=== PATIENT | male | born 1980 | race American Indian/Alaskan Native ===

== ENCOUNTER → 2017-10-30 09:35 | Emergency (ER) | payer MEDICARE | END | disposition left against medical advice (07) | LOC: ED 09:35 | DX: Z13.0 Encounter for screening for diseases of the blood and blood-forming organs and certain disorders involving the immune mechanism (principal); Z53.21 Procedure and treatment not carried out due to patient leaving prior to being seen by health care provider ==

== ENCOUNTER 2017-11-18 01:38 | Emergency (ER) | payer MEDICAID, MEDICARE ==
[2017-11-18 03:26] LABS: Basophils % (Auto) 0.6 % (0.0-1.8); Eosinophils # (Auto) 0.4 K/mm3 (0.0-0.4); Hematocrit 41.1 % (35.5-45.6); Hemoglobin 13.8 gm/dl (11.8-15.2); Lymphocytes # (Auto) 2.9 K/mm3 (1.2-5.4); Lymphocytes % (Auto) 37.8 % (13.4-35.0); Mean Corpuscular HGB Conc 34 % (32-34); Mean Corpuscular Hemoglobin 31 pg (28-32); Mean Corpuscular Volume 93 fl (84-94); Monocytes # (Auto) 0.6 K/mm3 (0.0-0.8); Monocytes % (Auto) 8.2 % (0.0-7.3); Platelet Count 219 K/mm3 (140-440); Red Blood Count 4.41 M/mm3 (3.65-5.03); Red Cell Distribution Width 14.5 % (13.2-15.2)
[2017-11-18 03:44] LABS: Bilirubin,Urine SM (Negative); Blood,Urine NEG (Negative); Color,Urine Yellow (Yellow); Hyaline Casts,Urine 1 /LPF; Mucus,Urine FEW /HPF
[2017-11-18 03:48] LABS: BUN/Creatinine Ratio 5; Blood Urea Nitrogen 6 mg/dL (9-20); Hemolysis Index 12
[2017-11-18 03:49] LABS: Amphetamine Screen,Urine PRESUMPTIVE NEGATIVE; Benzodiazepines Screen,Urine PRESUMPTIVE NEGATIVE; Methadone Screen,Urine PRESUMPTIVE NEGATIVE; Opiate Screen,Urine PRESUMPTIVE NEGATIVE
[2017-11-18 04:02] LABS: Ictotest,Urine Negative (Negative)
[2017-11-18 04:13] LABS: Cannabinoid Screen,Urine PRESUMPTIVE POSITIVE; Cocaine Screen,Urine PRESUMPTIVE POSITIVE
--- NOTE | 2017-11-18 07:57 | Emergency Department Report ---
ED Psych HPI - General Chief Complaint: Alcohol Stated Complaint: DETOX Time Seen by Provider: 11/18/17 07:32 Source: patient Mode of arrival: Ambulatory Limitations: No Limitations - History of Present Illness Initial Comments: 37 year old male with a past medical history mood disorder, bipolar, GERD, hypertension, and polysubstance abuse presents to the hospital requesting detox from cocaine and alcohol. Patient states he is scheduled to enroll at program at [facility] in 3 days and states he was told he needed to get clean first. Patient admits to cocaine and alcohol use last night. He drinks champagne daily. Denies a history of alcohol tremors. Positive auditory hallucinations reported what out suicidal or homicidal ideation. No physical complaints. - Related Data Home Medications Medication Instructions Recorded Confirmed Last Taken Benztropine [Cogentin] 2 mg PO BID 11/21/15 11/21/[address] [Demetris Valerio] 1 tab PO BID 11/21/15 11/21/15 Unknown Gabapentin [Gralise] 600 mg PO TID 11/21/15 11/21/15 Unknown Lisinopril [Zestril] 5 mg PO BID 11/21/15 11/21/15 Unknown Mirtazapine [Remeron] 15 mg PO HS 11/21/15 11/21/15 Unknown Paliperidone [Invega] 9 mg PO BID 11/21/15 11/21/15 Unknown Allergies Allergy/AdvReac Type Severity Reaction Status Date / Time aripiprazole [From Abilify] Allergy Seizure Verified 11/21/15 12:24 chlorpromazine HCl Allergy Seizure Verified 11/21/15 12:24 [From Thorazine] haloperidol [From Haldol] Allergy Seizure Verified 11/21/15 12:24 haloperidol lactate Allergy Seizure Verified 11/21/15 12:24 [From Haldol] olanzapine [From Zyprexa] Allergy Seizure Verified 11/21/15 12:24 quetiapine fumarate Allergy Seizure Verified 11/21/15 12:24 [From Seroquel] ziprasidone HCl [From Geodon] Allergy Seizure Verified 11/21/15 12:24 ziprasidone mesylate Allergy Seizure Verified 11/21/15 12:24 [From Geodon] ED Review of Systems ROS: Stated complaint: DETOX Other details as noted in HPI Comment: All other systems reviewed and negative ED Past Medical Hx - Past Medical History Previous Medical History?: Yes Hx Hypertension: Yes Hx GERD: Yes Hx Psychiatric Treatment: Yes (Mood disorder, Bipolar, Depression) - Surgical History Hx Appendectomy: Yes Additional Surgical History: Right wrist, Left foot - Social History Smoking Status: Current Every Day Smoker Substance Use Type: Alcohol, Cocaine, Marijuana - Medications Home Medications: Home Medications Medication Instructions Recorded Confirmed Last Taken Type Benztropine [Cogentin] 2 mg PO BID 11/21/15 11/21/[address] [Depoksana Valerio] 1 tab PO BID 11/21/15 11/21/15 Unknown History Gabapentin [Gralise] 600 mg PO TID 11/21/15 11/21/15 Unknown History Lisinopril [Zestril] 5 mg PO BID 11/21/15 11/21/15 Unknown History Mirtazapine [Remeron] 15 mg PO HS 11/21/15 11/21/15 Unknown History Paliperidone [Invega] 9 mg PO BID 11/21/15 11/21/15 Unknown History ED Physical Exam - General Limitations: No Limitations - Other Other exam information: General: No limitations, patient is alert in no acute distress Head exam: Atraumatic, normocephalic Eyes exam: Normal appearance, ENT: Moist mucous membrane, normal oropharynx Neck exam: Normal inspection, full range of motion Respiratory exam: Clear to auscultation bilateral, no wheezes, rales, crackles Cardiovascular: Normal rate and rhythm, normal heart sounds Abdomen: Soft, nondistended, and nontender, with normal bowel sounds, no rebound, or guarding Extremity: Full range of motion normal inspection no deformity Back: Normal Inspection, full range of motion, no tenderness Neurologic: Alert, oriented x3, cranial nerves intact, no motor or sensory deficit Psychiatric: normal affect, normal mood Skin: Warm, dry, intact ED Course Vital Signs 11/18/17 11/18/17 11/18/17 02:38 05:21 09:41 Temperature 98.3 F Pulse Rate 101 H 96 H 80 Respiratory 17 18 Rate Blood Pressure 160/97 149/78 Blood Pressure 116/67 [Right] O2 Sat by Pulse 99 93 98 Oximetry 11/18/17 09:42 Temperature Pulse Rate Respiratory 19 Rate Blood Pressure Blood Pressure [Right] O2 Sat by Pulse Oximetry ED Medical Decision Making - Lab Data Result diagrams: 11/18/17 02:59 11/18/17 02:59 Lab Results 11/18/17 11/18/17 11/18/17 Range/Units 02:50 02:50 02:59 WBC (4.5-11.0) K/mm3 RBC (3.65-5.03) M/mm3 Hgb (11.8-15.2) gm/dl Hct (35.5-45.6) % MCV (84-94) fl MCH (28-32) pg MCHC (32-34) % RDW (13.2-15.2) % Plt Count (140-440) K/mm3 Lymph % (Auto) (13.4-35.0) % [place] % (Auto) (0.0-7.3) % Eos % (Auto) (0.0-4.3) % Baso % (Auto) (0.0-1.8) % Lymph # (1.2-5.4) K/mm3 [place] # (0.0-0.8) K/mm3 Eos # (0.0-0.4) K/mm3 Baso # (0.0-0.1) K/mm3 Seg Neutrophils % (40.0-70.0) % Seg Neutrophils # (1.8-7.7) K/mm3 Sodium (137-145) mmol/L Potassium (3.6-5.0) mmol/L Chloride (98-107) mmol/L Carbon Dioxide (22-30) mmol/L Anion Gap mmol/L BUN (9-20) mg/dL Creatinine (0.8-1.5) mg/dL Estimated GFR ml/min BUN/Creatinine Ratio % Glucose (75-100) mg/dL Calcium (8.4-10.2) mg/dL Total Creatine Kinase (55-170) units/L Urine Color Yellow (Yellow) Urine Turbidity Slightly-cloudy (Clear) Urine pH 6.0 (5.0-7.0) Ur Specific [place] 1.026 (1.003-1.030) Urine Protein 100 mg/dl (Negative) mg/dL Urine Glucose (UA) Neg (Negative) mg/dL Urine Ketones Tr (Negative) mg/dL Urine Blood Neg (Negative) Urine Nitrite Neg (Negative) Urine Bilirubin Sm (Negative) Urine Ictotest Negative (Negative) Urine Urobilinogen 2.0 (<2.0) mg/dL Ur Leukocyte Esterase Tr (Negative) Urine WBC (Auto) 5.0 (0.0-6.0) /HPF Urine RBC (Auto) 4.0 (0.0-6.0) /HPF Hyaline Casts 1 /LPF Urine Mucus Few /HPF Salicylates < 0.3 L (2.8-20.0) mg/dL Urine Opiates Screen Presumptive negative Urine Methadone Screen Presumptive negative Acetaminophen (10.0-30.0) ug/mL Ur Barbiturates Screen Presumptive negative Ur Phencyclidine Scrn Presumptive negative Ur Amphetamines Screen Presumptive negative U Benzodiazepines Scrn Presumptive negative Urine Cocaine Screen Presumptive positive U Marijuana (THC) Screen Presumptive positive Drugs of Abuse Note Disclamer Plasma/Serum Alcohol (0-0.07) % 11/18/17 11/18/17 11/18/17 Range/Units 02:59 02:59 02:59 WBC (4.5-11.0) K/mm3 RBC (3.65-5.03) M/mm3 Hgb (11.8-15.2) gm/dl Hct (35.5-45.6) % MCV (84-94) fl MCH (28-32) pg MCHC (32-34) % RDW (13.2-15.2) % Plt Count (140-440) K/mm3 Lymph % (Auto) (13.4-35.0) % [place] % (Auto) (0.0-7.3) % Eos % (Auto) (0.0-4.3) % Baso % (Auto) (0.0-1.8) % Lymph # (1.2-5.4) K/mm3 [place] # (0.0-0.8) K/mm3 Eos # (0.0-0.4) K/mm3 Baso # (0.0-0.1) K/mm3 Seg Neutrophils % (40.0-70.0) % Seg Neutrophils # (1.8-7.7) K/mm3 Sodium 140 (137-145) mmol/L Potassium 3.7 (3.6-5.0) mmol/L Chloride 98.8 (98-107) mmol/L Carbon Dioxide 28 (22-30) mmol/L Anion Gap 17 mmol/L BUN 6 L (9-20) mg/dL Creatinine 1.3 (0.8-1.5) mg/dL Estimated GFR > 60 ml/min BUN/Creatinine Ratio 5 % Glucose 94 (75-100) mg/dL Calcium 9.0 (8.4-10.2) mg/dL Total Creatine Kinase (55-170) units/L Urine Color (Yellow) Urine Turbidity (Clear) Urine pH (5.0-7.0) Ur Specific [place] (1.003-1.030) Urine Protein (Negative) mg/dL Urine Glucose (UA) (Negative) mg/dL Urine Ketones (Negative) mg/dL Urine Blood (Negative) Urine Nitrite (Negative) Urine Bilirubin (Negative) Urine Ictotest (Negative) Urine Urobilinogen (<2.0) mg/dL Ur Leukocyte Esterase (Negative) Urine WBC (Auto) (0.0-6.0) /HPF Urine RBC (Auto) (0.0-6.0) /HPF Hyaline Casts /LPF Urine Mucus /HPF Salicylates (2.8-20.0) mg/dL Urine Opiates Screen Urine Methadone Screen Acetaminophen < 5.0 L (10.0-30.0) ug/mL Ur Barbiturates Screen Ur Phencyclidine Scrn Ur Amphetamines Screen U Benzodiazepines Scrn Urine Cocaine Screen U Marijuana (THC) Screen Drugs of Abuse Note Plasma/Serum Alcohol < 0.01 (0-0.07) % 11/18/17 11/18/17 Range/Units 02:59 07:44 WBC 7.6 (4.5-11.0) K/mm3 RBC 4.41 (3.65-5.03) M/mm3 Hgb 13.8 (11.8-15.2) gm/dl Hct 41.1 (35.5-45.6) % MCV 93 (84-94) fl MCH 31 (28-32) pg MCHC 34 (32-34) % RDW 14.5 (13.2-15.2) % Plt Count 219 (140-440) K/mm3 Lymph % (Auto) 37.8 H (13.4-35.0) % [place] % (Auto) 8.2 H (0.0-7.3) % Eos % (Auto) 5.0 H (0.0-4.3) % Baso % (Auto) 0.6 (0.0-1.8) % Lymph # 2.9 (1.2-5.4) K/mm3 [place] # 0.6 (0.0-0.8) K/mm3 Eos # 0.4 (0.0-0.4) K/mm3 Baso # 0.0 (0.0-0.1) K/mm3 Seg Neutrophils % 48.4 (40.0-70.0) % Seg Neutrophils # 3.7 (1.8-7.7) K/mm3 Sodium (137-145) mmol/L Potassium (3.6-5.0) mmol/L Chloride (98-107) mmol/L Carbon Dioxide (22-30) mmol/L Anion Gap mmol/L BUN (9-20) mg/dL Creatinine (0.8-1.5) mg/dL Estimated GFR ml/min BUN/Creatinine Ratio % Glucose (75-100) mg/dL Calcium (8.4-10.2) mg/dL Total Creatine Kinase 868 H (55-170) units/L Urine Color (Yellow) Urine Turbidity (Clear) Urine pH (5.0-7.0) Ur Specific [place] (1.003-1.030) Urine Protein (Negative) mg/dL Urine Glucose (UA) (Negative) mg/dL Urine Ketones (Negative) mg/dL Urine Blood (Negative) Urine Nitrite (Negative) Urine Bilirubin (Negative) Urine Ictotest (Negative) Urine Urobilinogen (<2.0) mg/dL Ur Leukocyte Esterase (Negative) Urine WBC (Auto) (0.0-6.0) /HPF Urine RBC (Auto) (0.0-6.0) /HPF Hyaline Casts /LPF Urine Mucus /HPF Salicylates (2.8-20.0) mg/dL Urine Opiates Screen Urine Methadone Screen Acetaminophen (10.0-30.0) ug/mL Ur Barbiturates Screen Ur Phencyclidine Scrn Ur Amphetamines Screen U Benzodiazepines Scrn Urine Cocaine Screen U Marijuana (THC) Screen Drugs of Abuse Note Plasma/Serum Alcohol (0-0.07) % - Medical Decision Making Patient was assessed by mental health provider and patient has been in and out of several different mental health facilities including outpatient programs. He also has gotten into altercations with other patients at these facilities. Patient does not meet 1013 criteria and therefore be discharged - Differential Diagnosis drug abuse,alcohol abuse, mood disorder, bipolar Critical Care Time: No Critical care attestation.: If time is entered above; I have spent that time in minutes in the direct care of this critically ill patient, excluding procedure time. ED Disposition Clinical Impression: Mood disorder, Cocaine abuse, Alcohol abuse Disposition: DC-01 TO HOME OR SELFCARE Is pt being admited?: No Does the pt Need Aspirin: No Condition: Stable Instructions: Cocaine Abuse (ED), Mood Disorders (ED), Abuse of Alcohol (ED) Additional Instructions: Follow up with your doctor and/or the psychiatric services provided. Return if symptoms worsen as indicated by your discharge instructions Referrals: [facility] [Outside] - 3-5 Days [place], psychiatry [Other] - 3-5 Days Time of Disposition: 11:13
[2017-11-18 09:42] VITALS: BP 116/67
== END 2017-11-18 11:27 | disposition home or self-care (01) ==
LOC: ED 01:38
DX: F39 Unspecified mood [affective] disorder (principal); F14.10 Cocaine abuse, uncomplicated; I10 Essential (primary) hypertension; K21.9 Gastro-esophageal reflux disease without esophagitis; F31.9 Bipolar disorder, unspecified; F32.9 Major depressive disorder, single episode, unspecified; F17.200 Nicotine dependence, unspecified, uncomplicated; F12.10 Cannabis abuse, uncomplicated; Z88.8 Allergy status to other drugs, medicaments and biological substances
CPT/HCPCS: 36415; 80048; 80307; 81001; 82550; 85025; 99284; G0480; 80320

== ENCOUNTER 2017-11-18 15:39 | Emergency (ER) | payer MEDICAID, MEDICARE ==
[2017-11-18 16:17] LABS: Basophils % (Auto) 0.3 % (0.0-1.8); Eosinophils # (Auto) 0.3 K/mm3 (0.0-0.4); Eosinophils % (Auto) 2.9 % (0.0-4.3); Hematocrit 39.4 % (35.5-45.6); Hemoglobin 13.4 gm/dl (11.8-15.2); Lymphocytes # (Auto) 1.9 K/mm3 (1.2-5.4); Mean Corpuscular HGB Conc 34 % (32-34); Mean Corpuscular Hemoglobin 32 pg (28-32); Mean Corpuscular Volume 93 fl (84-94); Monocytes # (Auto) 0.6 K/mm3 (0.0-0.8); Monocytes % (Auto) 6.6 % (0.0-7.3); Platelet Count 239 K/mm3 (140-440); Red Blood Count 4.25 M/mm3 (3.65-5.03); Red Cell Distribution Width 14.3 % (13.2-15.2)
[2017-11-18 16:31] LABS: BUN/Creatinine Ratio 8; Blood Urea Nitrogen 11 mg/dL (9-20); Calcium 9.4 mg/dL (8.4-10.2); Hemolysis Index 3
--- NOTE | 2017-11-18 17:44 | Emergency Department Report ---
HPI - General Chief Complaint: Medical Clearance Time Seen by Provider: 11/18/17 17:32 - HPI HPI: Room 17 The patient is a 37-year-old male presented with a chief complaint of requesting alcohol and drug detox. The patient returns to the hospital requesting assistance in detoxing from alcohol and cocaine. Patient was reportedly here at this morning for the same but left AMA the middle of his evaluation. The patient states she still desires to have detox from alcohol and cocaine. Patient denies suicidal ideation. Location: [See above] Duration: [See above] Quality: [See above] Severity: Moderate Modifying factors: [see above] Context: [see above] Mode of transportation: [not driving] ED Past Medical Hx - Past Medical History Previous Medical History?: Yes Hx Hypertension: Yes Hx GERD: Yes Hx Psychiatric Treatment: Yes (Mood disorder, Bipolar, Depression) - Surgical History Past Surgical History?: Yes Hx Appendectomy: Yes Additional Surgical History: Right wrist, Left foot - Family History Family history: no significant - Social History Smoking Status: Current Every Day Smoker (1 pack per day) Substance Use Type: Alcohol (consumes 1/5 of liquor in 2 days), Cocaine, Marijuana - Medications Home Medications: Home Medications Medication Instructions Recorded Confirmed Last Taken Type Benztropine [Cogentin] 2 mg PO BID 11/21/15 11/21/15 Unknown History Divalproex [Demetris Valerio] 1 tab PO BID 11/21/15 11/21/15 Unknown History Gabapentin [Gralise] 600 mg PO TID 11/21/15 11/21/15 Unknown History Lisinopril [Zestril] 5 mg PO BID 11/21/15 11/21/15 Unknown History Mirtazapine [Remeron] 15 mg PO HS 11/21/15 11/21/15 Unknown History Paliperidone [Invega] 9 mg PO BID 11/21/15 11/21/15 Unknown History ED Review of Systems ROS: Stated complaint: REHAB TREATMENT Other details as noted in HPI Constitutional: no symptoms reported Eyes: denies: eye pain ENT: denies: throat pain Respiratory: no symptoms reported Cardiovascular: denies: chest pain Endocrine: no symptoms reported Gastrointestinal: denies: abdominal pain Genitourinary: denies: dysuria Musculoskeletal: denies: back pain Neurological: denies: headache Psychiatric: denies: suicidal thoughts Physical Exam - Physical Exam Vital Signs: Vital Signs 11/18/17 15:48 Temperature 99.0 F Pulse Rate 102 H Respiratory 18 Rate Blood Pressure 151/98 O2 Sat by Pulse 98 Oximetry Physical Exam: GENERAL: The patient is well-developed well-nourished male sitting on stretcher not appearing to be in acute distress. [] HEENT: Normocephalic. Atraumatic. Extraocular motions are intact. Patient has moist mucous membranes. NECK: Supple. No meningitic signs are noted. There is no adenopathy noted. CHEST/LUNGS: Clear to auscultation. There is no respiratory distress noted. HEART/CARDIOVASCULAR: Regular. There is no tachycardia. There is no gallop rub or murmur. ABDOMEN: Abdomen is soft, nontender. Patient has normal bowel sounds. There is no abdominal distention. SKIN: There is no rash. There is no edema. There is no diaphoresis. NEURO: The patient is awake, alert, and oriented. The patient is cooperative. The patient has no focal neurologic deficits. The patient has normal speech and gait. MUSCULOSKELETAL: There is no evidence of acute injury. ED Course Vital Signs 11/18/17 15:48 Temperature 99.0 F Pulse Rate 102 H Respiratory 18 Rate Blood Pressure 151/98 O2 Sat by Pulse 98 Oximetry ED Medical Decision Making - Lab Data Result diagrams: 11/18/17 16:06 11/18/17 16:06 Laboratory Tests 11/18/17 11/18/17 11/18/17 16:06 16:06 16:06 WBC RBC Hgb Hct MCV MCH MCHC RDW Plt Count Lymph % (Auto) [place] % (Auto) Eos % (Auto) Baso % (Auto) Lymph # [place] # Eos # Baso # Seg Neutrophils % Seg Neutrophils # Sodium 139 Potassium 3.5 L Chloride 101.3 Carbon Dioxide 28 Anion Gap 13 BUN 11 Creatinine 1.4 Estimated GFR > 60 BUN/Creatinine Ratio 8 Glucose 119 H Calcium 9.4 Urine Color Urine Turbidity Urine pH Ur Specific [place] Urine Protein Urine Glucose (UA) Urine Ketones Urine Blood Urine Nitrite Urine Bilirubin Urine Urobilinogen Ur Leukocyte Esterase Urine WBC (Auto) Urine RBC (Auto) U Epithel Cells (Auto) Urine Mucus Salicylates < 0.3 L Urine Opiates Screen Urine Methadone Screen Acetaminophen < 5.0 L Ur Barbiturates Screen Ur Phencyclidine Scrn Ur Amphetamines Screen U Benzodiazepines Scrn Urine Cocaine Screen U Marijuana (THC) Screen Drugs of Abuse Note Plasma/Serum Alcohol 11/18/17 11/18/17 11/19/17 16:06 16:06 Unknown WBC 8.9 RBC 4.25 Hgb 13.4 Hct 39.4 MCV 93 MCH 32 MCHC 34 RDW 14.3 Plt Count 239 Lymph % (Auto) 21.0 [place] % (Auto) 6.6 Eos % (Auto) 2.9 Baso % (Auto) 0.3 Lymph # 1.9 [place] # 0.6 Eos # 0.3 Baso # 0.0 Seg Neutrophils % 69.2 Seg Neutrophils # 6.1 Sodium Potassium Chloride Carbon Dioxide Anion Gap BUN Creatinine Estimated GFR BUN/Creatinine Ratio Glucose Calcium Urine Color Yellow Urine Turbidity Clear Urine pH 7.0 Ur Specific [place] 1.011 Urine Protein <15 mg/dl Urine Glucose (UA) Neg Urine Ketones Neg Urine Blood Neg Urine Nitrite Neg Urine Bilirubin Neg Urine Urobilinogen < 2.0 Ur Leukocyte Esterase Tr Urine WBC (Auto) 1.0 Urine RBC (Auto) 1.0 U Epithel Cells (Auto) < 1.0 Urine Mucus Few Salicylates Urine Opiates Screen Urine Methadone Screen Acetaminophen Ur Barbiturates Screen Ur Phencyclidine Scrn Ur Amphetamines Screen U Benzodiazepines Scrn Urine Cocaine Screen U Marijuana (THC) Screen Drugs of Abuse Note Plasma/Serum Alcohol 0.02 11/19/17 Unknown WBC RBC Hgb Hct MCV MCH MCHC RDW Plt Count Lymph % (Auto) [place] % (Auto) Eos % (Auto) Baso % (Auto) Lymph # [place] # Eos # Baso # Seg Neutrophils % Seg Neutrophils # Sodium Potassium Chloride Carbon Dioxide Anion Gap BUN Creatinine Estimated GFR BUN/Creatinine Ratio Glucose Calcium Urine Color Urine Turbidity Urine pH Ur Specific [place] Urine Protein Urine Glucose (UA) Urine Ketones Urine Blood Urine Nitrite Urine Bilirubin Urine Urobilinogen Ur Leukocyte Esterase Urine WBC (Auto) Urine RBC (Auto) U Epithel Cells (Auto) Urine Mucus Salicylates Urine Opiates Screen Presumptive negative Urine Methadone Screen Presumptive negative Acetaminophen Ur Barbiturates Screen Presumptive negative Ur Phencyclidine Scrn Presumptive negative Ur Amphetamines Screen Presumptive negative U Benzodiazepines Scrn Presumptive negative Urine Cocaine Screen Presumptive positive U Marijuana (THC) Screen Presumptive positive Drugs of Abuse Note Disclamer Plasma/Serum Alcohol - Differential Diagnosis polysubstance abuse Critical care attestation.: If time is entered above; I have spent that time in minutes in the direct care of this critically ill patient, excluding procedure time. ED Disposition Clinical Impression: Alcohol abuse, Cocaine abuse Disposition: DC/TX-65 PSY HOSP/PSY UNIT Is pt being admited?: No Does the pt Need Aspirin: No Condition: Stable Referrals: PRIMARY CARE, [Primary Care Provider] - 3-5 Days Time of Disposition: 12:30 (awaiting acceptance)
[2017-11-19 00:21] LABS: Bilirubin,Urine NEG (Negative); Blood,Urine NEG (Negative); Color,Urine Yellow (Yellow); Mucus,Urine FEW /HPF; Protein,Urine <15 mg/dL mg/dL (Negative); Urobilinogen,Urine < 2.0 mg/dL (<2.0)
[2017-11-19 00:29] LABS: Amphetamine Screen,Urine PRESUMPTIVE NEGATIVE; Benzodiazepines Screen,Urine PRESUMPTIVE NEGATIVE; Methadone Screen,Urine PRESUMPTIVE NEGATIVE; Opiate Screen,Urine PRESUMPTIVE NEGATIVE
[2017-11-19 00:45] LABS: Cannabinoid Screen,Urine PRESUMPTIVE POSITIVE; Cocaine Screen,Urine PRESUMPTIVE POSITIVE
[2017-11-19 09:21] VITALS: BP 118/64
--- NOTE | 2017-11-19 13:39 | Consultation ---
History of Present Illness - Reason for Consult Consult date: 11/19/17 Reason for consult: Mental Health Evaluation Requesting physician: INGRIS HUSTON - Chief Complaint Chief complaint: "They are following me" - History of Present Psychiatric Illness 37-year-old male presented with a chief complaint of requesting alcohol and drug detox. Today the patient is tangent and disorganized during the assessment. Per the record, the patient left the ER and return because he felt like he needed detox. The patient was not lucid during the entire interview. He was asked about why he left the ER initially and returned, his answer was not logical. He had to be redirected several times to keep him on topic. He is adamant that people in [place] are following him and putting his business in "the street." He would not confirm or deny a mental health hx when asked. This patient is not a good historian at this time. Medications and Allergies Allergies Allergy/AdvReac Type Severity Reaction Status Date / Time aripiprazole [From Abilify] Allergy Seizure Verified 11/21/15 12:24 chlorpromazine HCl Allergy Seizure Verified 11/21/15 12:24 [From Thorazine] haloperidol [From Haldol] Allergy Seizure Verified 11/21/15 12:24 haloperidol lactate Allergy Seizure Verified 11/21/15 12:24 [From Haldol] olanzapine [From Zyprexa] Allergy Seizure Verified 11/21/15 12:24 quetiapine fumarate Allergy Seizure Verified 11/21/15 12:24 [From Seroquel] ziprasidone HCl [From Geodon] Allergy Seizure Verified 11/21/15 12:24 ziprasidone mesylate Allergy Seizure Verified 11/21/15 12:24 [From Geodon] Home Medications Medication Instructions Recorded Confirmed Last Taken Type Benztropine [Cogentin] 2 mg PO BID 11/21/15 11/21/15 Unknown History Divalproex [Demetris Valeiro] 1 tab PO BID 11/21/15 11/21/15 Unknown History Gabapentin [Gralise] 600 mg PO TID 11/21/15 11/21/15 Unknown History Lisinopril [Zestril] 5 mg PO BID 11/21/15 11/21/15 Unknown History Mirtazapine [Remeron] 15 mg PO HS 11/21/15 11/21/15 Unknown History Paliperidone [Invega] 9 mg PO BID 11/21/15 11/21/15 Unknown History Past psychiatric history - Past Medical History Past Medical History: hypertension, other Past Surgical History: No surgical history - past Psychiatric treatment and history psychiatric treatment history: The patient acknowledged some type of mental cathleen hx when asked. He would not confirm or deny a fam psy hx. - Social History Social history: other (Homeless) Mental Status Exam - Vital signs Last Vital Signs Temp 98.2 F 11/19/17 09:20 Pulse 68 11/19/17 09:20 Resp 16 11/19/17 09:21 BP 118/64 11/19/17 09:20 Pulse Ox 98 11/19/17 09:20 - Exam Narrative exam: MSE: Appearance: uncooperative Behavior: regular eye contact Speech: hyper verbal and loud tone Mood: labile Affect: congruent to mood Thought Process: tangential, disorganized Thought Content: denies SI/HI's and AVH's, paranoia, delusional Motor Activity: lying in bed Cognition: A/O x 3 Insight: poor Judgment: poor Results Result Diagrams: 11/18/17 16:06 11/18/17 16:06 Abnormal lab results 11/18/17 11/18/17 11/18/17 Range/Units 16:06 16:06 16:06 Potassium 3.5 L (3.6-5.0) mmol/L Glucose 119 H (75-100) mg/dL Salicylates < 0.3 L (2.8-20.0) mg/dL Acetaminophen < 5.0 L (10.0-30.0) ug/mL All other labs normal. Assessment and Plan Assessment and plan: Impression: Unspecified Psychosis. Substance Use DO (cocaine). Today the patient is tangent and disorganized during the assessment. DDx: Bipolar DO with psychosis, Schiziophrenia, R/O Substance Induced Psychosis Recommendation/Plan: Initiated 1013. Per the staff, prior to the 1013 being initiated, the patient left the ER and 911 was called. If patient is brought back to the ER, he will be assess for proper dispo and treatment.
== END 2017-11-19 13:11 ==
LOC: ED 15:39
DX: F10.10 Alcohol abuse, uncomplicated (principal); F14.10 Cocaine abuse, uncomplicated; I10 Essential (primary) hypertension; K21.9 Gastro-esophageal reflux disease without esophagitis; F31.9 Bipolar disorder, unspecified; F39 Unspecified mood [affective] disorder; F17.200 Nicotine dependence, unspecified, uncomplicated; F12.10 Cannabis abuse, uncomplicated; Z90.49 Acquired absence of other specified parts of digestive tract
CPT/HCPCS: 36415; 80048; 80307; 81001; 85025; 99283; G0480; 80320

== ENCOUNTER 2019-01-21 00:27 | Inpatient (IN) | payer MEDICARE ==
[2019-01-21 01:08] LABS: Basophils # (Auto) 0.1 K/mm3 (0.0-0.1); Basophils % (Auto) 0.7 % (0.0-1.8); Eosinophils # (Auto) 0.6 K/mm3 (0.0-0.4); Eosinophils % (Auto) 6.3 % (0.0-4.3); Hematocrit 40.6 % (35.5-45.6); Hemoglobin 13.7 gm/dl (11.8-15.2); Lymphocytes # (Auto) 2.6 K/mm3 (1.2-5.4); Mean Corpuscular HGB Conc 34 % (32-34); Mean Corpuscular Volume 93 fl (84-94); Monocytes # (Auto) 0.9 K/mm3 (0.0-0.8); Monocytes % (Auto) 9.4 % (0.0-7.3); Platelet Count 313 K/mm3 (140-440); Red Blood Count 4.38 M/mm3 (3.65-5.03); Red Cell Distribution Width 14.8 % (13.2-15.2)
[2019-01-21] MEDS ORDERED: LORazepam 1 MG TAB PO ONE (01:24)
[2019-01-21 01:30] LABS: BUN/Creatinine Ratio 15; Blood Urea Nitrogen 18 mg/dL (9-20); Calcium 9.9 mg/dL (8.4-10.2); Hemolysis Index 31
--- NOTE | 2019-01-21 01:30 | Emergency Department Report ---
HPI - General Chief Complaint: Psych Time Seen by Provider: 01/21/19 01:09 - HPI HPI: Room 14 The patient is a 39-year-old male presenting with a chief complaint of polysubstance abuse and suicidal ideation. The patient states his is leaving him and this led to abuse cocaine and methamphetamine. The patient states for one day he has had thoughts of wanting to hurt himself. Patient denies active attempts to harm himself states his plan was to overdose on drugs. The patient appears anxious Location: [See above] Duration: [See above] Quality: [See above] Severity: [See above] Timing: [See above] Context: [See above] Modifying factors: [See above] Associated signs and symptoms: [see above] ED Past Medical Hx - Past Medical History Previous Medical History?: Yes Hx Hypertension: Yes Hx GERD: Yes Hx Psychiatric Treatment: Yes (Mood disorder, Bipolar, Depression) Additional medical history: boderline diabetic - Surgical History Hx Appendectomy: Yes Additional Surgical History: Right wrist, Left foot - Family History Family history: no significant - Social History Smoking Status: Current Every Day Smoker (1/7 pack per day) Substance Use Type: Alcohol, Cocaine - Medications Home Medications: Home Medications Medication Instructions Recorded Confirmed Last Taken Type Benztropine [Cogentin] 2 mg PO BID 11/21/15 01/21/19 Unknown History Divalproex [Demetris Valerio] 1 tab PO BID 11/21/15 01/21/19 Unknown History Gabapentin [Gralise] 600 mg PO TID 11/21/15 01/21/19 Unknown History Lisinopril [Zestril] 5 mg PO BID 11/21/15 01/21/19 Unknown History Mirtazapine [Remeron] 15 mg PO HS 11/21/15 01/21/19 Unknown History Paliperidone [Invega] 9 mg PO BID 11/21/15 01/21/19 Unknown History ED Review of Systems ROS: Stated complaint: MED CLEARANCE Other details as noted in HPI Constitutional: no symptoms reported Eyes: denies: eye pain ENT: denies: throat pain Psychiatric: depression, suicidal thoughts Physical Exam - Physical Exam Vital Signs: Vital Signs 01/21/19 00:31 Temperature 98.4 F Pulse Rate 115 H Respiratory 18 Rate Blood Pressure 158/103 O2 Sat by Pulse 96 Oximetry Physical Exam: GENERAL: The patient is well-developed well-nourished male sitting on stretcher appearing anxious. [] HEENT: Normocephalic. Atraumatic. Extraocular motions are intact. Patient has moist mucous membranes. NECK: Supple. Midline CHEST/LUNGS: Clear to auscultation. There is no respiratory distress noted. HEART/CARDIOVASCULAR: Regular. There is tachycardia. There is no gallop rub or murmur. ABDOMEN: Abdomen is soft, nontender. Patient has normal bowel sounds. There is no abdominal distention. SKIN: There is no rash. There is no edema. There is no diaphoresis. NEURO: The patient is awake, alert, and oriented. The patient is cooperative. The patient has no focal neurologic deficits. The patient has slightly pressured speech. She has normal gait. Patient appears anxious MUSCULOSKELETAL:There is no evidence of acute injury. ED Course Vital Signs 01/21/19 00:31 Temperature 98.4 F Pulse Rate 115 H Respiratory 18 Rate Blood Pressure 158/103 O2 Sat by Pulse 96 Oximetry ED Medical Decision Making - Lab Data Result diagrams: 01/21/19 00:48 01/21/19 00:48 Laboratory Tests Laboratory Tests 01/21/19 01/21/19 01/21/19 00:48 00:48 00:48 WBC RBC Hgb Hct MCV MCH MCHC RDW Plt Count Lymph % (Auto) [place] % (Auto) Eos % (Auto) Baso % (Auto) Lymph # [place] # Eos # Baso # Seg Neutrophils % Seg Neutrophils # Sodium 144 Potassium 4.1 Chloride 101.0 Carbon Dioxide 28 Anion Gap 19 BUN 18 Creatinine 1.2 Estimated GFR > 60 BUN/Creatinine Ratio 15 Glucose 83 Calcium 9.9 Total Creatine Kinase CK-MB (CK-2) CK-MB (CK-2) Rel Index Troponin T Urine Color Urine Turbidity Urine pH Ur Specific [place] Urine Protein Urine Glucose (UA) Urine Ketones Urine Blood Urine Nitrite Urine Bilirubin Urine Urobilinogen Ur Leukocyte Esterase Urine WBC (Auto) Urine RBC (Auto) Salicylates 1.0 L Urine Opiates Screen Urine Methadone Screen Acetaminophen < 5.0 L Ur Barbiturates Screen Ur Phencyclidine Scrn Ur Amphetamines Screen U Benzodiazepines Scrn Plasma/Serum Alcohol 01/21/19 01/21/19 01/21/19 00:48 00:48 01:42 WBC 10.0 RBC 4.38 Hgb 13.7 Hct 40.6 MCV 93 MCH 31 MCHC 34 RDW 14.8 Plt Count 313 Lymph % (Auto) 26.0 [place] % (Auto) 9.4 H Eos % (Auto) 6.3 H Baso % (Auto) 0.7 Lymph # 2.6 [place] # 0.9 H Eos # 0.6 H Baso # 0.1 Seg Neutrophils % 57.6 Seg Neutrophils # 5.8 Sodium Potassium Chloride Carbon Dioxide Anion Gap BUN Creatinine Estimated GFR BUN/Creatinine Ratio Glucose Calcium Total Creatine Kinase CK-MB (CK-2) CK-MB (CK-2) Rel Index Troponin T Urine Color Straw Urine Turbidity Clear Urine pH 7.0 Ur Specific [place] 1.011 Urine Protein <15 mg/dl Urine Glucose (UA) Neg Urine Ketones Neg Urine Blood Neg Urine Nitrite Neg Urine Bilirubin Neg Urine Urobilinogen < 2.0 Ur Leukocyte Esterase Neg Urine WBC (Auto) 1.0 Urine RBC (Auto) < 1.0 Salicylates Urine Opiates Screen Urine Methadone Screen Acetaminophen Ur Barbiturates Screen Ur Phencyclidine Scrn Ur Amphetamines Screen U Benzodiazepines Scrn Plasma/Serum Alcohol < 0.01 01/21/19 01/21/19 01:42 Unknown WBC RBC Hgb Hct MCV MCH MCHC RDW Plt Count Lymph % (Auto) [place] % (Auto) Eos % (Auto) Baso % (Auto) Lymph # [place] # Eos # Baso # Seg Neutrophils % Seg Neutrophils # Sodium Potassium Chloride Carbon Dioxide Anion Gap BUN Creatinine Estimated GFR BUN/Creatinine Ratio Glucose Calcium Total Creatine Kinase 6116 H CK-MB (CK-2) 20.5 H CK-MB (CK-2) Rel Index 0.3 Troponin T < 0.010 Urine Color Urine Turbidity Urine pH Ur Specific [place] Urine Protein Urine Glucose (UA) Urine Ketones Urine Blood Urine Nitrite Urine Bilirubin Urine Urobilinogen Ur Leukocyte Esterase Urine WBC (Auto) Urine RBC (Auto) Salicylates Urine Opiates Screen Presumptive negative Urine Methadone Screen Presumptive negative Acetaminophen Ur Barbiturates Screen Presumptive negative Ur Phencyclidine Scrn Presumptive negative Ur Amphetamines Screen Presumptive negative U Benzodiazepines Scrn Presumptive negative Plasma/Serum Alcohol - EKG Data -: EKG Interpreted by [place] EKG shows normal: sinus rhythm Rate: normal - EKG Data When compared to previous EKG there are: previous EKG unavailable Interpretation: other (no ischemic changes) - Differential Diagnosis suicidal ideation, polysubstance abuse, rhabdomyolysis Critical care attestation.: If time is entered above; I have spent that time in minutes in the direct care of this critically ill patient, excluding procedure time. ED Disposition Clinical Impression: Suicidal ideation, Polysubstance abuse Disposition: DC/TX-65 PSY HOSP/PSY UNIT Is pt being admited?: No Does the pt Need Aspirin: No Condition: Fair Time of Disposition: 02:35 (hospitalist paged (Dr Beaver))
[2019-01-21 01:44] LABS: Creatine Kinase MB 20.5 ng/mL (0.0-4.0)
[2019-01-21] MEDS ORDERED: SODIUM CHLORIDE 0.9% 1000 ML 1,000 ML IV ONE ×5 (02:05→02:34)
[2019-01-21 02:14] LABS: Bilirubin,Urine NEG (Negative); Blood,Urine NEG (Negative); Color,Urine Straw (Yellow); Protein,Urine <15 mg/dL mg/dL (Negative); RBC,Urine < 1.0 /HPF (0.0-6.0); Urobilinogen,Urine < 2.0 mg/dL (<2.0)
[2019-01-21 02:21] LABS: Amphetamine Screen,Urine PRESUMPTIVE NEGATIVE; Benzodiazepines Screen,Urine PRESUMPTIVE NEGATIVE; Methadone Screen,Urine PRESUMPTIVE NEGATIVE; Opiate Screen,Urine PRESUMPTIVE NEGATIVE
[2019-01-21 02:52] LABS: Cannabinoid Screen,Urine PRESUMPTIVE POSITIVE; Cocaine Screen,Urine PRESUMPTIVE POSITIVE
[2019-01-21] MEDS ORDERED: MAGNESIUM HYDROXIDE (MOM) ORAL LIQD UDC PO PRN (04:07)
[2019-01-21] MEDS ORDERED: ACETAMINOPHEN 325 MG TAB PO PRN (04:07)
[2019-01-21] MEDS ORDERED: ONDANSETRON 4 MG/2 ML INJ IV PRN (04:07)
[2019-01-21] MEDS ORDERED: SODIUM CHLORIDE 0.9% 1000 ML 1,000 ML IV SCH (05:00)
[2019-01-21] MEDS ORDERED: LORazepam 2 MG/ML VIAL IV ONE ×2 (06:17→16:17)
[2019-01-21] MEDS ORDERED: LORazepam 2 MG/ML VIAL ONE (06:21)
--- NOTE | 2019-01-21 07:07 | History and Physical Report ---
History of Present Illness Date of examination: 01/21/19 Date of admission: 01/21/19 06:10 Chief complaint: Agitation Suicidal ideation History of present illness: Patient a 39-year-old -[place] male with known history of bipolar disorder, hypertension borderline diabetes mellitus. He presents to the emergency room today for medical clearance prior to being admitted to the psychiatric facility. Patient is said to be having some suicidal ideations. He has had some marital problems lately and he has indicated he wanted to hurt himself. He denies any homicidal ideations. He has therefore been using cocaine and methamphetamine . Upon arriving in the emergency room. He was agitated and anxious. His work-up in the emergency room reveals elevated creatinine kinase and his EKG also showed sinus tachycardia. Past History Past Medical History: diabetes, hypertension, other (History of depression) Social history: , smoking (1 pack/day), alcohol abuse Family history: diabetes, hypertension, other (Depression) Medications and Allergies Allergies Allergy/AdvReac Type Severity Reaction Status Date / Time aripiprazole [From Abilify] Allergy Seizure Verified 11/21/15 12:24 chlorpromazine HCl Allergy Seizure Verified 11/21/15 12:24 [From Thorazine] haloperidol [From Haldol] Allergy Seizure Verified 11/21/15 12:24 haloperidol lactate Allergy Seizure Verified 11/21/15 12:24 [From Haldol] olanzapine [From Zyprexa] Allergy Seizure Verified 11/21/15 12:24 quetiapine fumarate Allergy Seizure Verified 11/21/15 12:24 [From Seroquel] ziprasidone HCl [From Geodon] Allergy Seizure Verified 11/21/15 12:24 ziprasidone mesylate Allergy Seizure Verified 11/21/15 12:24 [From Geodon] Home Medications Medication Instructions Recorded Confirmed Last Taken Type Benztropine [Cogentin] 2 mg PO BID 11/21/15 01/21/19 Unknown History Divalproex [Demetris Valerio] 1 tab PO BID 11/21/15 01/21/19 Unknown History Gabapentin [Gralise] 600 mg PO TID 11/21/15 01/21/19 Unknown History Lisinopril [Zestril] 5 mg PO BID 11/21/15 01/21/19 Unknown History Mirtazapine [Remeron] 15 mg PO HS 11/21/15 01/21/19 Unknown History Paliperidone [Invega] 9 mg PO BID 11/21/15 01/21/19 Unknown History Active Meds: Active Medications Acetaminophen (Tylenol) 650 mg PO Q4H PRN PRN Reason: Pain MILD(1-3)/Fever >100.5/BRENNAN Sodium Chloride (Nacl 0.9% 1000 Ml) 1,000 mls @ 150 mls/hr IV DIRECT LETY Magnesium Hydroxide (Milk Of Magnesia) 30 ml PO Q4H PRN PRN Reason: Constipation Morphine Sulfate (Morphine) 2 mg IV Q4H PRN PRN Reason: Pain, Moderate (4-6) Ondansetron HCl (Zofran) 4 mg IV Q8H PRN PRN Reason: Nausea And Vomiting Sodium Chloride (Sodium Chloride Flush Syringe 10 Ml) 10 ml IV BID LETY Sodium Chloride (Sodium Chloride Flush Syringe 10 Ml) 10 ml IV PRN PRN PRN Reason: LINE FLUSH Review of Systems Psychiatric: anxiety, suicidal ideation, depression, irritability Exam - Constitutional Vitals: Temp Pulse Resp BP Pulse Ox 98.4 F 92 H 18 137/85 96 01/21/19 00:31 01/21/19 03:05 01/21/19 00:31 01/21/19 03:05 01/21/19 00:31 General appearance: Present: no acute distress, well-nourished - EENT Eyes: Present: PERRL, EOM intact ENT: hearing intact, clear oral mucosa, dentition normal - Neck Neck: Present: supple, normal ROM - Respiratory Respiratory effort: normal Respiratory: bilateral: CTA - Cardiovascular Rhythm: regular Heart Sounds: Present: S1 & S2 - Extremities Extremities: no ischemia, No edema Peripheral Pulses: within normal limits - Abdominal General gastrointestinal: Present: soft, non-tender, non-distended - Musculoskeletal Musculoskeletal: strength equal bilaterally - Psychiatric Psychiatric: cooperative, agitated, depressed - Neurologic Neurologic: CNII-XII intact, moves all extremities Results - Labs CBC & Chem 7: 01/21/19 00:48 01/21/19 00:48 Labs: Abnormal lab results 01/21/19 01/21/19 01/21/19 Range/Units 00:48 00:48 00:48 [place] % (Auto) 9.4 H (0.0-7.3) % Eos % (Auto) 6.3 H (0.0-4.3) % [place] # 0.9 H (0.0-0.8) K/mm3 Eos # 0.6 H (0.0-0.4) K/mm3 Total Creatine Kinase (55-170) units/L CK-MB (CK-2) (0.0-4.0) ng/mL Salicylates 1.0 L (2.8-20.0) mg/dL Acetaminophen < 5.0 L (10.0-30.0) ug/mL 01/21/19 Range/Units Unknown [place] % (Auto) (0.0-7.3) % Eos % (Auto) (0.0-4.3) % [place] # (0.0-0.8) K/mm3 Eos # (0.0-0.4) K/mm3 Total Creatine Kinase 6116 H (55-170) units/L CK-MB (CK-2) 20.5 H (0.0-4.0) ng/mL Salicylates (2.8-20.0) mg/dL Acetaminophen (10.0-30.0) ug/mL Assessment and Plan - Patient Problems (1) Suicidal ideation Current Visit: Yes Status: Acute Plan to address problem: Patient will be closely observed and has been placed on 1013. We will request mental health evaluation. (2) Polysubstance abuse Current Visit: Yes Status: Acute Plan to address problem: Patient patient has been using cocaine and methamphetamine. (3) Rhabdomyolysis Current Visit: Yes Status: Acute Plan to address problem: Patient on IV fluid normal saline. Will monitor on CK level (4) DVT prophylaxis Current Visit: Yes Status: Acute
--- NOTE | 2019-01-21 11:30 | Event Note ---
Date: 01/21/19 Patient seen and examined. This is a follow-up from an admission earlier this morning. We will continue the plan as outlined in H&P. Time spent = 15 minutes with greater than 50% spent on coronation of care and counseling.
--- NOTE | 2019-01-21 11:52 | Consultation ---
History of Present Illness - Reason for Consult Consult date: 01/21/19 Reason for consult: Mental Health Evaluation Requesting physician: INGRIS HUSTON - Chief Complaint Chief complaint: "The was not cooperative" - History of Present Psychiatric Illness 39 y.o. AA male who presented to the ER for substance abuse and SI's. Today the patient would not cooperate during the assessment. He did state, "I have relationship issues" and would not engage me the provider when asked more questions. Several attempts was made to engage the patient, but was unsuccessful. Medications and Allergies Allergies Allergy/AdvReac Type Severity Reaction Status Date / Time aripiprazole [From Abilify] Allergy Seizure Verified 11/21/15 12:24 chlorpromazine HCl Allergy Seizure Verified 11/21/15 12:24 [From Thorazine] haloperidol [From Haldol] Allergy Seizure Verified 11/21/15 12:24 haloperidol lactate Allergy Seizure Verified 11/21/15 12:24 [From Haldol] olanzapine [From Zyprexa] Allergy Seizure Verified 11/21/15 12:24 quetiapine fumarate Allergy Seizure Verified 11/21/15 12:24 [From Seroquel] ziprasidone HCl [From Geodon] Allergy Seizure Verified 11/21/15 12:24 ziprasidone mesylate Allergy Seizure Verified 11/21/15 12:24 [From Geodon] Home Medications Medication Instructions Recorded Confirmed Last Taken Type Benztropine [Cogentin] 2 mg PO BID 11/21/15 01/21/19 Unknown History Divalproex [Demetris Valerio] 1 tab PO BID 11/21/15 01/21/19 Unknown History Gabapentin [Gralise] 600 mg PO TID 11/21/15 01/21/19 Unknown History Lisinopril [Zestril] 5 mg PO BID 11/21/15 01/21/19 Unknown History Mirtazapine [Remeron] 15 mg PO HS 11/21/15 01/21/19 Unknown History Paliperidone [Invega] 9 mg PO BID 11/21/15 01/21/19 Unknown History Active Meds: Active Medications Acetaminophen (Tylenol) 650 mg PO Q4H PRN PRN Reason: Pain MILD(1-3)/Fever >100.5/BREN[place] Heparin Sodium (Porcine) (Heparin) 5,000 unit SUB-Q Q8HR LETY Sodium Chloride (Nacl 0.9% 1000 Ml) 1,000 mls @ 150 mls/hr IV DIRECT LETY Magnesium Hydroxide (Milk Of Magnesia) 30 ml PO Q4H PRN PRN Reason: Constipation Morphine Sulfate (Morphine) 2 mg IV Q4H PRN PRN Reason: Pain, Moderate (4-6) Ondansetron HCl (Zofran) 4 mg IV Q8H PRN PRN Reason: Nausea And Vomiting Sodium Chloride (Sodium Chloride Flush Syringe 10 Ml) 10 ml IV BID LETY Sodium Chloride (Sodium Chloride Flush Syringe 10 Ml) 10 ml IV PRN PRN PRN Reason: LINE FLUSH Past psychiatric history - Past Medical History Past Medical History: other (Unable to obtain ) Past Surgical History: Other (Unable to obtain ) - past Psychiatric treatment and history psychiatric treatment history: Unable to obtain a psy hx and fam psy hx. - Social History Social history: other (Unable to obtain ) Mental Status Exam - Vital signs Last Vital Signs Temp 97.6 F 01/21/19 08:35 Pulse 83 01/21/19 08:35 Resp 18 01/21/19 08:35 BP 137/96 01/21/19 08:35 Pulse Ox 94 01/21/19 08:35 - Exam Narrative exam: Unable to complete the MSE because the patient refused to cooperate. Results Result Diagrams: 01/21/19 00:48 01/21/19 00:48 Abnormal lab results 01/21/19 01/21/19 01/21/19 Range/Units 00:48 00:48 00:48 [place] % (Auto) 9.4 H (0.0-7.3) % Eos % (Auto) 6.3 H (0.0-4.3) % [place] # 0.9 H (0.0-0.8) K/mm3 Eos # 0.6 H (0.0-0.4) K/mm3 Total Creatine Kinase (55-170) units/L CK-MB (CK-2) (0.0-4.0) ng/mL Salicylates 1.0 L (2.8-20.0) mg/dL Acetaminophen < 5.0 L (10.0-30.0) ug/mL 01/21/19 01/21/19 Range/Units 08:44 Unknown [place] % (Auto) (0.0-7.3) % Eos % (Auto) (0.0-4.3) % [place] # (0.0-0.8) K/mm3 Eos # (0.0-0.4) K/mm3 Total Creatine Kinase 6134 H 6116 H (55-170) units/L CK-MB (CK-2) 20.5 H (0.0-4.0) ng/mL Salicylates (2.8-20.0) mg/dL Acetaminophen (10.0-30.0) ug/mL All other labs normal. Assessment and Plan Assessment and plan: Impression: Today the patient was uncooperative during the assessment. CK 6116. Positive for cocaine and marijuana. Recommendation/Plan: Continue 1013 and attempt to reassess the patient in 24 hours. Will staff with Dr Osmin Dalal.
[2019-01-21] MEDS: HEPARIN 5,000 UNIT/1 ML VIAL SUB-Q SCH ×2 (14:00→22:29)
[2019-01-21] MEDS: amLODIPine 10 MG TAB PO SCH (16:25)
[2019-01-21] MEDS: hydroCHLOROthiazide 12.5 MG CAP PO SCH (16:25)
[2019-01-21] MEDS ORDERED: hydrALAZINE 20 MG/1 ML INJ IV PRN (22:34)
[2019-01-21] MEDS: LISINOPRIL 5 MG TAB PO SCH (22:54)
[2019-01-21] MEDS ORDERED: amLODIPine 10 MG TAB PO ONE (23:00)
[2019-01-22 06:06] LABS: Hematocrit 39.7 % (35.5-45.6); Hemoglobin 13.4 gm/dl (11.8-15.2); Mean Corpuscular HGB Conc 34 % (32-34); Mean Corpuscular Volume 92 fl (84-94); Platelet Count 294 K/mm3 (140-440); Red Cell Distribution Width 14.9 % (13.2-15.2)
[2019-01-22 06:21] LABS: INR 1.03 (0.87-1.13)
[2019-01-22 06:26] LABS: BUN/Creatinine Ratio 14; Blood Urea Nitrogen 11 mg/dL (9-20); Calcium 9.1 mg/dL (8.4-10.2); Hemolysis Index 6
[2019-01-22] MEDS: HEPARIN 5,000 UNIT/1 ML VIAL SUB-Q SCH ×3 (06:46→22:33)
[2019-01-22] MEDS ORDERED: ALPRAZolam 1 MG TAB PO NR (09:00)
[2019-01-22] MEDS ORDERED: hydroCHLOROthiazide 12.5 MG CAP PO SCH (10:00)
[2019-01-22] MEDS ORDERED: amLODIPine 10 MG TAB PO SCH (10:00)
[2019-01-22] MEDS: LISINOPRIL 5 MG TAB PO SCH ×2 (10:16→22:32)
[2019-01-22] MEDS: hydroCHLOROthiazide 12.5 MG CAP PO SCH (10:17)
[2019-01-22] MEDS: amLODIPine 10 MG TAB PO SCH (10:17)
[2019-01-22] MEDS ORDERED: HALOPERIDOL LACTATE 5 MG/1 ML INJ IM PRN (10:41)
[2019-01-22] MEDS ORDERED: ZIPRASIDONE MESYLATE 20 MG VIAL IM PRN (10:41)
[2019-01-22 11:01] LABS: Total Cells Counted 100
[2019-01-22 11:02] LABS: Basophils % (Manual) 0 % (0.0-1.8); Macrocytosis 1+; Ovalocytes Few; Platelet Estimate Consistent w Auto; Target Cells Few
--- NOTE | 2019-01-22 11:48 | Progress Note ---
Subjective - Reason for Consult Consult date: 01/22/19 Reason for consult: Psychiatry Follow-up - Chief Complaint Chief complaint: "I need to get back to [facility]" 39 y.o. AA male who presented to the ER for substance abuse and SI's. Today the patient was hyper verbal and labile during the assessment. The patient was disorganized and needed constant redirection throughout the interview. He is fixated that he does not need IV fluids and the "network" isn't working. He could not logically explain whet he meant by the "network" when asked. Per the staff, the patient has been agitated throughout the shift. He denies SI/HI's and AVH's. The patient is familiar with [facility] inpatient setting. Mental Status Exam - Vital signs Last Vital Signs Temp 97.8 F 01/22/19 07:18 Pulse 84 01/22/19 10:17 Resp 18 01/22/19 07:18 BP 154/93 01/22/19 10:17 Pulse Ox 96 01/22/19 07:18 - Exam Narrative exam: MSE: Appearance: calm, cooperative Behavior: regular eye contact Speech: hyper verbal Mood:: labile Affect: congruent to mood Thought Process: tangential, disorganized Thought Content: denies SI/HI's and AVH's Motor Activity: ambulatory Cognition: A/O x3 Insight: poor Judgment: poor Assessment and Plan Impression: Unspecified Mood DO with psy features. Substance Use DO (cociane). Cannabis use DO. The patient maybe manic. Today the patient was labile during the assessment. CK 3706, trending down. There's no indication that the patient has NMS. DDx: Bipolar DO with psychosis, Substance Induced Mood/Psychotic DO Recommendation/Plan: Continue 1013 and start Invega 3 mg PO daily for mood/psychosis, Cogentin 0.5 mg PO daily for EPS prevention, and Vistaril 25 mg PO BID for anxiety. Baseline A1c/Lipid Pane/CKl ordered for the AM. Will staff with Dr Osmin Dalal.
[2019-01-22] MEDS: BENZTROPINE 0.5 MG TAB PO SCH (11:54)
[2019-01-22] MEDS: PALIPERIDONE ER 3 MG TAB PO SCH ×2 (11:54→12:42)
[2019-01-22] MEDS ORDERED: hydrOXYzine PAMOATE 25 MG CAP PO SCH (12:00)
[2019-01-22 13:49] LABS: Alanine Aminotransferase 48 units/L (7-56)
--- NOTE | 2019-01-22 14:08 | Progress Note ---
Assessment and Plan Assessment and plan: (1) Suicidal ideation -Patient is on 1013 -Psych evaluated him and recommended Cogentin -Patient is allergic to Haldol and geodon -will put on ativan (2) Polysubstance abuse Patient patient has been using cocaine and methamphetamine Patient counseled about cessation (3) Rhabdomyolysis - CK level decreased from 6000 to 3000 - Recommend continue IV fluid but patient refused (4) DVT prophylaxis Current Visit: Yes Status: Acute Disposition; patient is not medically cleared for discharge. History Interval history: Patient was seen and evaluated this morning Patient is very anxious Patient wants to go to [facility] Physical - Physical exam Narrative exam: Not in cardiopulmonary distress. The patient appeared well nourished and normally developed. Vital signs as documented. Head exam is unremarkable. No scleral icterus . Neck is without jugular venous distension, thyromegaly, or carotid bruits. Lungs are clear to auscultation. Cardiac exam reveals regular rate and Rhythm. First and second heart sounds normal. No murmurs, rubs or gallops. Abdominal exam reveals normal bowel sounds, no masses, no organomegaly and no aortic enlargement. Extremities are nonedematous and both femoral and pedal pulses are normal. 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 No focal weakness. - Constitutional Vitals: Temp Pulse Resp BP Pulse Ox 97.8 F 84 18 154/93 96 01/22/19 07:18 01/22/19 10:17 01/22/19 07:18 01/22/19 10:17 01/22/19 07:18 General appearance: Present: no acute distress, well-nourished Results - Labs CBC & Chem 7: 01/22/19 04:24 01/22/19 04:24 Labs: Laboratory Last Values WBC 5.8 K/mm3 (4.5-11.0) 01/22/19 04:24 RBC 4.30 M/mm3 (3.65-5.03) 01/22/19 04:24 Hgb 13.4 gm/dl (11.8-15.2) 01/22/19 04:24 Hct 39.7 % (35.5-45.6) 01/22/19 04:24 MCV 92 fl (84-94) 01/22/19 04:24 MCH 31 pg (28-32) 01/22/19 04:24 MCHC 34 % (32-34) 01/22/19 04:24 RDW 14.9 % (13.2-15.2) 01/22/19 04:24 Plt Count 294 K/mm3 (140-440) 01/22/19 04:24 Lymph % (Auto) 26.0 % (13.4-35.0) 01/21/19 00:48 [place] % (Auto) 9.4 % (0.0-7.3) H 01/21/19 00:48 Eos % (Auto) Coiled Tubing Operator 01/22/19 04:24 Baso % (Auto) 0.7 % (0.0-1.8) 01/21/19 00:48 Lymph # 2.6 K/mm3 (1.2-5.4) 01/21/19 00:48 [place] # 0.9 K/mm3 (0.0-0.8) H 01/21/19 00:48 Eos # 0.6 K/mm3 (0.0-0.4) H 01/21/19 00:48 Baso # 0.1 K/mm3 (0.0-0.1) 01/21/19 00:48 Add Manual Diff Complete 01/22/19 04:24 Total Counted 100 01/22/19 04:24 Seg Neutrophils % 57.6 % (40.0-70.0) 01/21/19 00:48 Seg Neuts % (Manual) 51.0 % (40.0-70.0) 01/22/19 04:24 Band Neutrophils % 0 % 01/22/19 04:24 Lymphocytes % (Manual) 29.0 % (13.4-35.0) 01/22/19 04:24 Reactive Lymphs % (Man) 0 % 01/22/19 04:24 Monocytes % (Manual) 7.0 % (0.0-7.3) 01/22/19 04:24 Eosinophils % (Manual) 13.0 % (0.0-4.3) H 01/22/19 04:24 Basophils % (Manual) 0 % (0.0-1.8) 01/22/19 04:24 Metamyelocytes % 0 % 01/22/19 04:24 Myelocytes % 0 % 01/22/19 04:24 Promyelocytes % 0 % 01/22/19 04:24 Blast Cells % 0 % 01/22/19 04:24 Nucleated RBC % Not Reportable 01/22/19 04:24 Seg Neutrophils # 5.8 K/mm3 (1.8-7.7) 01/21/19 00:48 Seg Neutrophils # Man 3.0 K/mm3 (1.8-7.7) 01/22/19 04:24 Band Neutrophils # 0.0 K/mm3 01/22/19 04:24 Lymphocytes # (Manual) 1.7 K/mm3 (1.2-5.4) 01/22/19 04:24 Abs React Lymphs (Man) 0.0 K/mm3 01/22/19 04:24 Monocytes # (Manual) 0.4 K/mm3 (0.0-0.8) 01/22/19 04:24 Eosinophils # (Manual) 0.8 K/mm3 (0.0-0.4) H 01/22/19 04:24 Basophils # (Manual) 0.0 K/mm3 (0.0-0.1) 01/22/19 04:24 Metamyelocytes # 0.0 K/mm3 01/22/19 04:24 Myelocytes # 0.0 K/mm3 01/22/19 04:24 Promyelocytes # 0.0 K/mm3 01/22/19 04:24 Blast Cells # 0.0 K/mm3 01/22/19 04:24 WBC Morphology Not Reportable 01/22/19 04:24 Hypersegmented Neuts Not Reportable 01/22/19 04:24 Hyposegmented Neuts Not Reportable 01/22/19 04:24 Hypogranular Neuts Not Reportable 01/22/19 04:24 Smudge Cells Not Reportable 01/22/19 04:24 Toxic Granulation Not Reportable 01/22/19 04:24 Toxic Vacuolation Not Reportable 01/22/19 04:24 Dohle Bodies Not Reportable 01/22/19 04:24 Pelger-Huet Anomaly Not Reportable 01/22/19 04:24 Aashish Rods Not Reportable 01/22/19 04:24 Platelet Estimate Consistent w auto 01/22/19 04:24 Clumped Platelets Not Reportable 01/22/19 04:24 Plt Clumps, EDTA Not Reportable 01/22/19 04:24 Large Platelets Not Reportable 01/22/19 04:24 Giant Platelets Not Reportable 01/22/19 04:24 Platelet Satelliting Not Reportable 01/22/19 04:24 Plt Morphology Comment Not Reportable 01/22/19 04:24 RBC Morphology Not Reportable 01/22/19 04:24 Dimorphic RBCs Not Reportable 01/22/19 04:24 Polychromasia Not Reportable 01/22/19 04:24 Hypochromasia Not Reportable 01/22/19 04:24 Poikilocytosis Not Reportable 01/22/19 04:24 Anisocytosis Not Reportable 01/22/19 04:24 Microcytosis Not Reportable 01/22/19 04:24 Macrocytosis 1+ 01/22/19 04:24 Spherocytes Not Reportable 01/22/19 04:24 Pappenheimer Bodies Not Reportable 01/22/19 04:24 Sickle Cells Not Reportable 01/22/19 04:24 Target Cells Few 01/22/19 04:24 Tear Drop Cells Not Reportable 01/22/19 04:24 Ovalocytes Few 01/22/19 04:24 Helmet Cells Not Reportable 01/22/19 04:24 [place] Bodies Not Reportable 01/22/19 04:24 [place] Rings Not Reportable 01/22/19 04:24 [place] Cells Not Reportable 01/22/19 04:24 Bite Cells Not Reportable 01/22/19 04:24 Crenated Cell Not Reportable 01/22/19 04:24 Elliptocytes Not Reportable 01/22/19 04:24 Acanthocytes (Spur) Not Reportable 01/22/19 04:24 Rouleaux Not Reportable 01/22/19 04:24 Hemoglobin C Crystals Not Reportable 01/22/19 04:24 Schistocytes Not Reportable 01/22/19 04:24 Malaria parasites Not Reportable 01/22/19 04:24 Andre Bodies Not Reportable 01/22/19 04:24 Hem Pathologist Commnt No 01/22/19 04:24 PT 13.4 Sec. (12.2-14.9) 01/22/19 04:24 INR 1.03 (0.87-1.13) 01/22/19 04:24 APTT 28.0 Sec. (24.2-36.6) 01/22/19 04:24 Sodium 141 mmol/L (137-145) 01/22/19 04:24 Potassium 3.6 mmol/L (3.6-5.0) 01/22/19 04:24 Chloride 103.5 mmol/L (98-107) 01/22/19 04:24 Carbon Dioxide 24 mmol/L (22-30) 01/22/19 04:24 Anion Gap 17 mmol/L 01/22/19 04:24 BUN 11 mg/dL (9-20) 01/22/19 04:24 Creatinine 0.8 mg/dL (0.8-1.5) 01/22/19 04:24 Estimated GFR > 60 ml/min 01/22/19 04:24 BUN/Creatinine Ratio 14 % 01/22/19 04:24 Glucose 95 mg/dL (75-100) 01/22/19 04:24 Calcium 9.1 mg/dL (8.4-10.2) 01/22/19 04:24 AST 84 units/L (5-40) H 01/22/19 12:31 ALT 48 units/L (7-56) 01/22/19 12:31 Alkaline Phosphatase 84 units/L (35-129) 01/22/19 12:31 Total Creatine Kinase 3706 units/L (55-170) H 01/22/19 04:24 CK-MB (CK-2) 20.5 ng/mL (0.0-4.0) H 01/21/19 Unknown CK-MB (CK-2) Rel Index 0.3 (0-4) 01/21/19 Unknown Troponin T < 0.010 ng/mL (0.00-0.029) 01/21/19 Unknown Amylase 123 units/L (27-131) 01/22/19 12:31 Lipase 14 units/L (13-60) 01/22/19 12:31 Urine Color Straw (Yellow) 01/21/19 01:42 Urine Turbidity Clear (Clear) 01/21/19 01:42 Urine pH 7.0 (5.0-7.0) 01/21/19 01:42 Ur Specific [place] 1.011 (1.003-1.030) 01/21/19 01:42 Urine Protein <15 mg/dl mg/dL (Negative) 01/21/19 01:42 Urine Glucose (UA) Neg mg/dL (Negative) 01/21/19 01:42 Urine Ketones Neg mg/dL (Negative) 01/21/19 01:42 Urine Blood Neg (Negative) 01/21/19 01:42 Urine Nitrite Neg (Negative) 01/21/19 01:42 Urine Bilirubin Neg (Negative) 01/21/19 01:42 Urine Urobilinogen < 2.0 mg/dL (<2.0) 01/21/19 01:42 Ur Leukocyte Esterase Neg (Negative) 01/21/19 01:42 Urine WBC (Auto) 1.0 /HPF (0.0-6.0) 01/21/19 01:42 Urine RBC (Auto) < 1.0 /HPF (0.0-6.0) 01/21/19 01:42 Salicylates 1.0 mg/dL (2.8-20.0) L 01/21/19 00:48 Urine Opiates Screen Presumptive negative 01/21/19 01:42 Urine Methadone Screen Presumptive negative 01/21/19 01:42 Acetaminophen < 5.0 ug/mL (10.0-30.0) L 01/21/19 00:48 Ur Barbiturates Screen Presumptive negative 01/21/19 01:42 Valproic Acid 8.1 ug/mL (50-100) L 01/22/19 12:31 Ur Phencyclidine Scrn Presumptive negative 01/21/19 01:42 Ur Amphetamines Screen Presumptive negative 01/21/19 01:42 U Benzodiazepines Scrn Presumptive negative 01/21/19 01:42 Urine Cocaine Screen Presumptive positive 01/21/19 01:42 U Marijuana (THC) Screen Presumptive positive 01/21/19 01:42 Drugs of Abuse Note Disclamer 01/21/19 01:42 Plasma/Serum Alcohol < 0.01 % (0-0.07) 01/21/19 00:48 Active Medications - Current Medications Current Medications: Generic Name Dose Route Start Last Admin Trade Name Freq PRN Reason Stop Dose Admin Acetaminophen 650 mg 01/21/19 04:07 Tylenol PO Q4H PRN Pain MILD(1-3)/Fever >100.5/BRENNAN Amlodipine Besylate 10 mg 01/21/19 16:00 01/22/19 10:17 Amlodipine PO 10 mg QDAY LETY Administration Benztropine Mesylate 0.5 mg 01/22/19 12:00 01/22/19 11:54 Cogentin PO 0.5 mg DAILY LETY Administration Heparin Sodium (Porcine) 5,000 unit 01/21/19 14:00 01/22/19 06:46 Heparin SUB-Q 5,000 unit Q8HR LETY Administration Hydralazine HCl 10 mg 01/21/19 22:34 Apresoline IV Q4H PRN Blood Pressure Hydrochlorothiazide 12.5 mg 01/21/19 16:00 01/22/19 10:17 Hctz PO 12.5 mg QDAY LETY Administration Hydroxyzine Pamoate 25 mg 01/22/19 12:00 01/22/19 11:54 Vistaril PO 25 mg BID LETY Administration Sodium Chloride 1,000 mls @ 75 mls/hr 01/21/19 05:00 01/21/19 16:31 Nacl 0.9% 1000 Ml IV 150 mls/hr DIRECT LETY Administration Lisinopril 5 mg 01/21/19 23:00 01/22/19 10:16 Zestril PO 5 mg BID LETY Administration Magnesium Hydroxide 30 ml 01/21/19 04:07 Milk Of Magnesia PO Q4H PRN Constipation Morphine Sulfate 2 mg 01/21/19 04:07 Morphine IV Q4H PRN Pain, Moderate (4-6) Ondansetron HCl 4 mg 01/21/19 04:07 Zofran IV Q8H PRN Nausea And Vomiting Paliperidone 3 mg 01/22/19 12:00 01/22/19 12:42 Invega PO 3 mg QDAY LETY Administration Sodium Chloride 10 ml 01/21/19 10:00 01/22/19 10:19 Sodium Chloride Flush Syringe 10 Ml IV 10 ml BID LETY Administration Sodium Chloride 10 ml 01/21/19 04:07 Sodium Chloride Flush Syringe 10 Ml IV PRN PRN LINE FLUSH
[2019-01-22] MEDS: LORazepam 2 MG/ML VIAL IV PRN ×2 (16:43→19:40)
[2019-01-22] MEDS: clonazePAM 0.5 MG TAB PO SCH ×2 (22:32→22:52)
[2019-01-22] MEDS: diphenhydrAMINE 50 MG/ML VIAL IV PRN (22:35)
[2019-01-23] MEDS: LORazepam 2 MG/ML VIAL IV PRN ×4 (04:43→23:13)
[2019-01-23] MEDS: diphenhydrAMINE 50 MG/ML VIAL IV PRN ×2 (04:44→21:23)
[2019-01-23] MEDS: HEPARIN 5,000 UNIT/1 ML VIAL SUB-Q SCH ×3 (05:17→21:29)
[2019-01-23 07:07] LABS: Chol/HDL Ratio 2.53 %
[2019-01-23] MEDS ORDERED: SODIUM CHLORIDE 0.9% 1000 ML 1,000 ML IV ONE (07:18)
--- NOTE | 2019-01-23 09:18 | Progress Note ---
Assessment and Plan Assessment and plan: (1) Suicidal ideation -Patient is on 1013 -Psych evaluated him and recommended Cogentin -Patient is allergic to Haldol and geodon -will continue ativan PRN (2) Polysubstance abuse Patient patient has been using cocaine and methamphetamine Patient counseled about cessation (3) Rhabdomyolysis - CK level today is 1778, will check the level TODAY - I ordered a litre of NS bolus (4) DVT prophylaxis Current Visit: Yes Status: Acute Disposition; If accepted by [facility], i am ok to discharge. CK level decreased significantly. History Interval history: Patient was seen and evaluated this morning Patient was calm and cooprative Patient wants to go to [facility] Physical - Physical exam Narrative exam: Not in cardiopulmonary distress. The patient appeared well nourished and normally developed. Vital signs as documented. Head exam is unremarkable. No scleral icterus . Neck is without jugular venous distension, thyromegaly, or carotid bruits. Lungs are clear to auscultation. Cardiac exam reveals regular rate and Rhythm. First and second heart sounds normal. No murmurs, rubs or gallops. Abdominal exam reveals normal bowel sounds, no masses, no organomegaly and no aortic enlargement. Extremities are nonedematous and both femoral and pedal pulses are normal. 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 No focal weakness. - Constitutional Vitals: Temp Pulse Resp BP Pulse Ox 98 F 83 18 141/76 95 01/22/19 20:40 01/23/19 00:00 01/22/19 20:40 01/22/19 20:40 01/22/19 20:40 General appearance: Present: no acute distress, well-nourished Results - Labs CBC & Chem 7: 01/22/19 04:24 01/22/19 04:24 Labs: Laboratory Last Values WBC 5.8 K/mm3 (4.5-11.0) 01/22/19 04:24 RBC 4.30 M/mm3 (3.65-5.03) 01/22/19 04:24 Hgb 13.4 gm/dl (11.8-15.2) 01/22/19 04:24 Hct 39.7 % (35.5-45.6) 01/22/19 04:24 MCV 92 fl (84-94) 01/22/19 04:24 MCH 31 pg (28-32) 01/22/19 04:24 MCHC 34 % (32-34) 01/22/19 04:24 RDW 14.9 % (13.2-15.2) 01/22/19 04:24 Plt Count 294 K/mm3 (140-440) 01/22/19 04:24 Lymph % (Auto) 26.0 % (13.4-35.0) 01/21/19 00:48 [place] % (Auto) 9.4 % (0.0-7.3) H 01/21/19 00:48 Eos % (Auto) Regional Planner 01/22/19 04:24 Baso % (Auto) 0.7 % (0.0-1.8) 01/21/19 00:48 Lymph # 2.6 K/mm3 (1.2-5.4) 01/21/19 00:48 [place] # 0.9 K/mm3 (0.0-0.8) H 01/21/19 00:48 Eos # 0.6 K/mm3 (0.0-0.4) H 01/21/19 00:48 Baso # 0.1 K/mm3 (0.0-0.1) 01/21/19 00:48 Add Manual Diff Complete 01/22/19 04:24 Total Counted 100 01/22/19 04:24 Seg Neutrophils % 57.6 % (40.0-70.0) 01/21/19 00:48 Seg Neuts % (Manual) 51.0 % (40.0-70.0) 01/22/19 04:24 Band Neutrophils % 0 % 01/22/19 04:24 Lymphocytes % (Manual) 29.0 % (13.4-35.0) 01/22/19 04:24 Reactive Lymphs % (Man) 0 % 01/22/19 04:24 Monocytes % (Manual) 7.0 % (0.0-7.3) 01/22/19 04:24 Eosinophils % (Manual) 13.0 % (0.0-4.3) H 01/22/19 04:24 Basophils % (Manual) 0 % (0.0-1.8) 01/22/19 04:24 Metamyelocytes % 0 % 01/22/19 04:24 Myelocytes % 0 % 01/22/19 04:24 Promyelocytes % 0 % 01/22/19 04:24 Blast Cells % 0 % 01/22/19 04:24 Nucleated RBC % Not Reportable 01/22/19 04:24 Seg Neutrophils # 5.8 K/mm3 (1.8-7.7) 01/21/19 00:48 Seg Neutrophils # Man 3.0 K/mm3 (1.8-7.7) 01/22/19 04:24 Band Neutrophils # 0.0 K/mm3 01/22/19 04:24 Lymphocytes # (Manual) 1.7 K/mm3 (1.2-5.4) 01/22/19 04:24 Abs React Lymphs (Man) 0.0 K/mm3 01/22/19 04:24 Monocytes # (Manual) 0.4 K/mm3 (0.0-0.8) 01/22/19 04:24 Eosinophils # (Manual) 0.8 K/mm3 (0.0-0.4) H 01/22/19 04:24 Basophils # (Manual) 0.0 K/mm3 (0.0-0.1) 01/22/19 04:24 Metamyelocytes # 0.0 K/mm3 01/22/19 04:24 Myelocytes # 0.0 K/mm3 01/22/19 04:24 Promyelocytes # 0.0 K/mm3 01/22/19 04:24 Blast Cells # 0.0 K/mm3 01/22/19 04:24 WBC Morphology Not Reportable 01/22/19 04:24 Hypersegmented Neuts Not Reportable 01/22/19 04:24 Hyposegmented Neuts Not Reportable 01/22/19 04:24 Hypogranular Neuts Not Reportable 01/22/19 04:24 Smudge Cells Not Reportable 01/22/19 04:24 Toxic Granulation Not Reportable 01/22/19 04:24 Toxic Vacuolation Not Reportable 01/22/19 04:24 Dohle Bodies Not Reportable 01/22/19 04:24 Pelger-Huet Anomaly Not Reportable 01/22/19 04:24 Aashish Rods Not Reportable 01/22/19 04:24 Platelet Estimate Consistent w auto 01/22/19 04:24 Clumped Platelets Not Reportable 01/22/19 04:24 Plt Clumps, EDTA Not Reportable 01/22/19 04:24 Large Platelets Not Reportable 01/22/19 04:24 Giant Platelets Not Reportable 01/22/19 04:24 Platelet Satelliting Not Reportable 01/22/19 04:24 Plt Morphology Comment Not Reportable 01/22/19 04:24 RBC Morphology Not Reportable 01/22/19 04:24 Dimorphic RBCs Not Reportable 01/22/19 04:24 Polychromasia Not Reportable 01/22/19 04:24 Hypochromasia Not Reportable 01/22/19 04:24 Poikilocytosis Not Reportable 01/22/19 04:24 Anisocytosis Not Reportable 01/22/19 04:24 Microcytosis Not Reportable 01/22/19 04:24 Macrocytosis 1+ 01/22/19 04:24 Spherocytes Not Reportable 01/22/19 04:24 Pappenheimer Bodies Not Reportable 01/22/19 04:24 Sickle Cells Not Reportable 01/22/19 04:24 Target Cells Few 01/22/19 04:24 Tear Drop Cells Not Reportable 01/22/19 04:24 Ovalocytes Few 01/22/19 04:24 Helmet Cells Not Reportable 01/22/19 04:24 [place] Bodies Not Reportable 01/22/19 04:24 [place] Rings Not Reportable 01/22/19 04:24 [place] Cells Not Reportable 01/22/19 04:24 Bite Cells Not Reportable 01/22/19 04:24 Crenated Cell Not Reportable 01/22/19 04:24 Elliptocytes Not Reportable 01/22/19 04:24 Acanthocytes (Spur) Not Reportable 01/22/19 04:24 Rouleaux Not Reportable 01/22/19 04:24 Hemoglobin C Crystals Not Reportable 01/22/19 04:24 Schistocytes Not Reportable 01/22/19 04:24 Malaria parasites Not Reportable 01/22/19 04:24 Andre Bodies Not Reportable 01/22/19 04:24 Hem Pathologist Commnt No 01/22/19 04:24 PT 13.4 Sec. (12.2-14.9) 01/22/19 04:24 INR 1.03 (0.87-1.13) 01/22/19 04:24 APTT 28.0 Sec. (24.2-36.6) 01/22/19 04:24 Sodium 141 mmol/L (137-145) 01/22/19 04:24 Potassium 3.6 mmol/L (3.6-5.0) 01/22/19 04:24 Chloride 103.5 mmol/L (98-107) 01/22/19 04:24 Carbon Dioxide 24 mmol/L (22-30) 01/22/19 04:24 Anion Gap 17 mmol/L 01/22/19 04:24 BUN 11 mg/dL (9-20) 01/22/19 04:24 Creatinine 0.8 mg/dL (0.8-1.5) 01/22/19 04:24 Estimated GFR > 60 ml/min 01/22/19 04:24 BUN/Creatinine Ratio 14 % 01/22/19 04:24 Glucose 95 mg/dL (75-100) 01/22/19 04:24 Hemoglobin A1c 5.6 % (4-6) 01/22/19 04:24 Calcium 9.1 mg/dL (8.4-10.2) 01/22/19 04:24 AST 65 units/L (5-40) H 01/23/19 05:21 ALT 48 units/L (7-56) 01/22/19 12:31 Alkaline Phosphatase 84 units/L (35-129) 01/22/19 12:31 Total Creatine Kinase 1778 units/L (55-170) H 01/23/19 04:47 CK-MB (CK-2) 20.5 ng/mL (0.0-4.0) H 01/21/19 Unknown CK-MB (CK-2) Rel Index 0.3 (0-4) 01/21/19 Unknown Troponin T < 0.010 ng/mL (0.00-0.029) 01/21/19 Unknown Triglycerides 79 mg/dL (2-149) 01/23/19 05:21 Cholesterol 200 mg/dL (50-199) H 01/23/19 05:21 LDL Cholesterol Direct 111 mg/dL (50-130) 01/23/19 05:21 HDL Cholesterol 79 mg/dL (40-59) H 01/23/19 05:21 Cholesterol/HDL Ratio 2.53 % 01/23/19 05:21 Amylase 123 units/L (27-131) 01/22/19 12:31 Lipase 14 units/L (13-60) 01/22/19 12:31 Urine Color Straw (Yellow) 01/21/19 01:42 Urine Turbidity Clear (Clear) 01/21/19 01:42 Urine pH 7.0 (5.0-7.0) 01/21/19 01:42 Ur Specific [place] 1.011 (1.003-1.030) 01/21/19 01:42 Urine Protein <15 mg/dl mg/dL (Negative) 01/21/19 01:42 Urine Glucose (UA) Neg mg/dL (Negative) 01/21/19 01:42 Urine Ketones Neg mg/dL (Negative) 01/21/19 01:42 Urine Blood Neg (Negative) 01/21/19 01:42 Urine Nitrite Neg (Negative) 01/21/19 01:42 Urine Bilirubin Neg (Negative) 01/21/19 01:42 Urine Urobilinogen < 2.0 mg/dL (<2.0) 01/21/19 01:42 Ur Leukocyte Esterase Neg (Negative) 01/21/19 01:42 Urine WBC (Auto) 1.0 /HPF (0.0-6.0) 01/21/19 01:42 Urine RBC (Auto) < 1.0 /HPF (0.0-6.0) 01/21/19 01:42 Salicylates 1.0 mg/dL (2.8-20.0) L 01/21/19 00:48 Urine Opiates Screen Presumptive negative 01/21/19 01:42 Urine Methadone Screen Presumptive negative 01/21/19 01:42 Acetaminophen < 5.0 ug/mL (10.0-30.0) L 01/21/19 00:48 Ur Barbiturates Screen Presumptive negative 01/21/19 01:42 Valproic Acid 8.1 ug/mL (50-100) L 01/22/19 12:31 Ur Phencyclidine Scrn Presumptive negative 01/21/19 01:42 Ur Amphetamines Screen Presumptive negative 01/21/19 01:42 U Benzodiazepines Scrn Presumptive negative 01/21/19 01:42 Urine Cocaine Screen Presumptive positive 01/21/19 01:42 U Marijuana (THC) Screen Presumptive positive 01/21/19 01:42 Drugs of Abuse Note Disclamer 01/21/19 01:42 Plasma/Serum Alcohol < 0.01 % (0-0.07) 01/21/19 00:48 Active Medications - Current Medications Current Medications: Generic Name Dose Route Start Last Admin Trade Name Freq PRN Reason Stop Dose Admin Acetaminophen 650 mg 01/21/19 04:07 Tylenol PO Q4H PRN Pain MILD(1-3)/Fever >100.5/BRENNAN Amlodipine Besylate 10 mg 01/21/19 16:00 01/22/19 10:17 Amlodipine PO 10 mg QDAY LETY Administration Benztropine Mesylate 0.5 mg 01/22/19 12:00 01/22/19 11:54 Cogentin PO 0.5 mg DAILY LETY Administration Clonazepam 0.5 mg 01/22/19 20:00 01/22/19 22:52 Klonopin PO Not Given BID LETY Diphenhydramine HCl 25 mg 01/22/19 20:33 01/23/19 04:44 Benadryl IV 25 mg Q6H PRN Administration Itching Heparin Sodium (Porcine) 5,000 unit 01/21/19 14:00 01/23/19 05:17 Heparin SUB-Q Not Given Q8HR LETY Hydralazine HCl 10 mg 01/21/19 22:34 Apresoline IV Q4H PRN Blood Pressure Hydrochlorothiazide 12.5 mg 01/21/19 16:00 01/22/19 10:17 Hctz PO 12.5 mg QDAY LETY Administration Sodium Chloride 1,000 mls @ 75 mls/hr 01/21/19 05:00 01/21/19 16:31 Nacl 0.9% 1000 Ml IV 150 mls/hr DIRECT LETY Administration Lisinopril 5 mg 01/21/19 23:00 01/22/19 22:32 Zestril PO 5 mg BID LETY Administration Lorazepam 2 mg 01/22/19 15:00 01/23/19 04:43 Ativan IV 2 mg Q4H PRN Administration Agitation Magnesium Hydroxide 30 ml 01/21/19 04:07 Milk Of Magnesia PO Q4H PRN Constipation Morphine Sulfate 2 mg 01/21/19 04:07 Morphine IV Q4H PRN Pain, Moderate (4-6) Ondansetron HCl 4 mg 01/21/19 04:07 Zofran IV Q8H PRN Nausea And Vomiting Paliperidone 3 mg 01/22/19 12:00 01/22/19 12:42 Invega PO 3 mg QDAY LETY Administration Sodium Chloride 10 ml 01/21/19 10:00 01/22/19 22:32 Sodium Chloride Flush Syringe 10 Ml IV 10 ml BID LETY Administration Sodium Chloride 10 ml 01/21/19 04:07 Sodium Chloride Flush Syringe 10 Ml IV PRN PRN LINE FLUSH
[2019-01-23] MEDS: LISINOPRIL 5 MG TAB PO SCH ×2 (10:27→21:23)
[2019-01-23] MEDS: hydroCHLOROthiazide 12.5 MG CAP PO SCH (10:28)
[2019-01-23] MEDS: PALIPERIDONE ER 3 MG TAB PO SCH (10:28)
[2019-01-23] MEDS: BENZTROPINE 0.5 MG TAB PO SCH (10:28)
[2019-01-23] MEDS: amLODIPine 10 MG TAB PO SCH (10:28)
[2019-01-23] MEDS: clonazePAM 0.5 MG TAB PO SCH ×2 (10:28→21:23)
--- NOTE | 2019-01-23 12:48 | Event Note ---
Date: 01/23/19 CK level is significantly decreased and he is medically clear for discharge. discharge is per psychiatry. CK is 1374 from 6k and ok to discharge with the advice to drink water and decrease sternous exercise.
--- NOTE | 2019-01-23 13:05 | Progress Note ---
Subjective - Reason for Consult Consult date: 01/23/19 Reason for consult: Psychiatry Follow-up - Chief Complaint Chief complaint: "I'm good" 39 y.o. AA male who presented to the ER for substance abuse and SI's. Today the patient was still hyper verbal and labile during the assessment. HHis answers to most questions were not logical. He continue to state that [facility] need him there. He denies SI/HI's and VH's. He would not confirm or deny AH's. No indications of side effects from his medication. Mental Status Exam - Vital signs Last Vital Signs Temp 98 F 01/22/19 20:40 Pulse 71 01/23/19 10:29 Resp 16 01/23/19 01:42 BP 148/92 01/23/19 10:29 Pulse Ox 100 01/23/19 10:29 - Exam Narrative exam: MSE: Appearance: in hospital attire Behavior: regular eye contact Speech: hyper verbal Mood:: labile Affect: congruent to mood Thought Process: tangential, disorganized Thought Content: denies SI/HI's and AVH's, grandiose Motor Activity: ambulatory Cognition: A/O x3 Insight: poor Judgment: poor Assessment and Plan Impression: Unspecified Mood DO with psy features. Substance Use DO (cocaine). Cannabis Use DO. The patient is manic. Today the patient was still labile during the assessment. CK 1374, trending down. There's no indication that the patient has NMS. DDx: Bipolar DO with psychosis, Substance Induced Mood/Psychotic DO Recommendation/Plan: Continue 1013, Invega 3 mg PO daily for mood/psychosis, Cogentin 0.5 mg PO daily for EPS prevention, and Klonopin i0.5 mg PO BID for anxiety. Start Depakote 500 mg PO BID for mood. Dispo: The patient was referred to inpatient psy services. Staffed with Dr Osmin Dalal.
--- NOTE | 2019-01-23 13:10 | Discharge Summary ---
Providers - Providers Date of Admission: 01/21/19 06:10 Date of discharge: 01/25/19 Attending physician: JUDITH GARSIA MD 01/22/19 00:38 Consult to Case Management [CONS] Routine Services Needed at Discharge: [employer] Notified:: no Additional Physician Instructions: when dc'd needs help with transport and skilled nursing. [facility] Reason for admission: Rhabdomyolysis, psychosis Condition: Fair Hospital course: Patient a 39-year-old -[place] male with known history of bipolar disorder, hypertension borderline diabetes mellitus. He presents to the emergency room today for medical clearance prior to being admitted to the psychiatric facility. Patient is said to be having some suicidal ideations. He has had some marital problems lately and he has indicated he wanted to hurt himself. He denies any homicidal ideations. He has therefore been using cocaine and methamphetamine .Upon arriving in the emergency room. He was agitated and anxious. His work-up in the emergency room reveals elevated creatinine kinase and his EKG also showed sinus tachycardia. Patient was admitted to the floor on 1012 and he was managed with IV fluids for rhabdomyolysis and resolved. patient is still suicidal, medically cleared and discharged by psych to inpatient psych facility. Patient was hemodynamically stable at the time of discharge. Disposition: DC/TX-65 PSY HOSP/PSY UNIT Time spent for discharge: 32 minutes - Discharge Diagnoses (1) Polysubstance abuse Status: Acute (2) Rhabdomyolysis Status: Acute (3) Suicidal ideation Status: Acute Core Measure Documentation - Palliative Care Palliative Care/ Comfort Measures: Not Applicable - Core Measures Any of the following diagnoses?: none Exam - Physical Exam Narrative exam: Not in cardiopulmonary distress. The patient appeared well nourished and normally developed. Vital signs as documented. Head exam is unremarkable. No scleral icterus . Neck is without jugular venous distension, thyromegaly, or carotid bruits. Lungs are clear to auscultation. Cardiac exam reveals regular rate and Rhythm. First and second heart sounds normal. No murmurs, rubs or gallops. Abdominal exam reveals normal bowel sounds, no masses, no organomegaly and no aortic enlargement. Extremities are nonedematous and both femoral and pedal pulses are normal. ART DIRECTOR: Alert and oriented 3. No focal weakness. - Constitutional Vitals: Temp Pulse Resp BP Pulse Ox 98 F 71 16 148/92 100 01/22/19 20:40 01/23/19 10:29 01/23/19 01:42 01/23/19 10:29 01/23/19 10:29 Plan Activity: no restrictions Weight Bearing Status: Full Weight Bearing Diet: low salt Follow up with: TAVON BAIN MD [Primary Care Provider] - 7 Days Prescriptions: amLODIPine 10 mg PO QDAY #30 tablet amLODIPine 10 mg PO ONCE #30 cloNIDine [Catapres] 0.2 mg PO BID #[address] [Depakote Dr] 1 tab PO BID #60 Gabapentin [Gralise] 600 mg PO TID #90 hydroCHLOROthiazide [HCTZ] 12.5 mg PO QDAY #30 capsule hydroCHLOROthiazide [HCTZ] 12.5 mg PO QDAY #30 cap
[2019-01-23] MEDS: DIVALPROEX ER 500 MG TAB PO SCH ×2 (15:10→21:23)
[2019-01-24] MEDS: HEPARIN 5,000 UNIT/1 ML VIAL SUB-Q SCH ×3 (06:12→21:11)
[2019-01-24] MEDS: amLODIPine 10 MG TAB PO SCH (09:59)
[2019-01-24] MEDS: MORPHINE 2 MG/1 ML INJ IV PRN ×3 (09:59→23:28)
[2019-01-24] MEDS: LISINOPRIL 5 MG TAB PO SCH ×2 (09:59→21:10)
[2019-01-24] MEDS: clonazePAM 0.5 MG TAB PO SCH ×2 (10:00→21:11)
[2019-01-24] MEDS: hydroCHLOROthiazide 12.5 MG CAP PO SCH (10:00)
[2019-01-24] MEDS: PALIPERIDONE ER 3 MG TAB PO SCH (10:00)
[2019-01-24] MEDS: BENZTROPINE 0.5 MG TAB PO SCH (10:01)
[2019-01-24] MEDS: DIVALPROEX ER 500 MG TAB PO SCH ×2 (10:01→21:11)
[2019-01-24] MEDS: LORazepam 2 MG/ML VIAL IV PRN ×4 (10:01→21:10)
--- NOTE | 2019-01-24 14:23 | Progress Note ---
Assessment and Plan Assessment and plan: (1) Suicidal ideation -Patient is on 1013 -Psych evaluated him and recommended Cogentin -Patient is allergic to Haldol and geodon -will continue ativan PRN (2) Polysubstance abuse Patient patient has been using cocaine and methamphetamine Patient counseled about cessation (3) Rhabdomyolysis - CK level today is 770 - continue water intake (4) DVT prophylaxis Current Visit: Yes Status: Acute Disposition; Patient is medically cleared. History Interval history: Patient was seen and evaluated this morning Patient wants to go to [place], he was aggressive Hospitalist Physical - Physical exam Narrative exam: Not in cardiopulmonary distress. The patient appeared well nourished and normally developed. Vital signs as documented. Head exam is unremarkable. No scleral icterus . Neck is without jugular venous distension, thyromegaly, or carotid bruits. Lungs are clear to auscultation. Cardiac exam reveals regular rate and Rhythm. Abdominal exam reveals normal bowel sounds, no masses, no organomegaly and no aortic enlargement. Extremities are nonedematous and both femoral and pedal pulses are normal. DIRECTOR OF ENTERTAINMENT: Alert and oriented 3. No focal weakness. - Constitutional Vitals: Temp Pulse Resp BP Pulse Ox 98.2 F 100 H 19 142/94 100 01/24/19 04:15 01/24/19 12:00 01/24/19 12:00 01/24/19 09:59 01/24/19 12:00 General appearance: Present: no acute distress, well-nourished Results - Labs CBC & Chem 7: 01/22/19 04:24 01/22/19 04:24 Labs: Laboratory Last Values WBC 5.8 K/mm3 (4.5-11.0) 01/22/19 04:24 RBC 4.30 M/mm3 (3.65-5.03) 01/22/19 04:24 Hgb 13.4 gm/dl (11.8-15.2) 01/22/19 04:24 Hct 39.7 % (35.5-45.6) 01/22/19 04:24 MCV 92 fl (84-94) 01/22/19 04:24 MCH 31 pg (28-32) 01/22/19 04:24 MCHC 34 % (32-34) 01/22/19 04:24 RDW 14.9 % (13.2-15.2) 01/22/19 04:24 Plt Count 294 K/mm3 (140-440) 01/22/19 04:24 Lymph % (Auto) 26.0 % (13.4-35.0) 01/21/19 00:48 [place] % (Auto) 9.4 % (0.0-7.3) H 01/21/19 00:48 Eos % (Auto) Business Development Assistant 01/22/19 04:24 Baso % (Auto) 0.7 % (0.0-1.8) 01/21/19 00:48 Lymph # 2.6 K/mm3 (1.2-5.4) 01/21/19 00:48 [place] # 0.9 K/mm3 (0.0-0.8) H 01/21/19 00:48 Eos # 0.6 K/mm3 (0.0-0.4) H 01/21/19 00:48 Baso # 0.1 K/mm3 (0.0-0.1) 01/21/19 00:48 Add Manual Diff Complete 01/22/19 04:24 Total Counted 100 01/22/19 04:24 Seg Neutrophils % 57.6 % (40.0-70.0) 01/21/19 00:48 Seg Neuts % (Manual) 51.0 % (40.0-70.0) 01/22/19 04:24 Band Neutrophils % 0 % 01/22/19 04:24 Lymphocytes % (Manual) 29.0 % (13.4-35.0) 01/22/19 04:24 Reactive Lymphs % (Man) 0 % 01/22/19 04:24 Monocytes % (Manual) 7.0 % (0.0-7.3) 01/22/19 04:24 Eosinophils % (Manual) 13.0 % (0.0-4.3) H 01/22/19 04:24 Basophils % (Manual) 0 % (0.0-1.8) 01/22/19 04:24 Metamyelocytes % 0 % 01/22/19 04:24 Myelocytes % 0 % 01/22/19 04:24 Promyelocytes % 0 % 01/22/19 04:24 Blast Cells % 0 % 01/22/19 04:24 Nucleated RBC % Not Reportable 01/22/19 04:24 Seg Neutrophils # 5.8 K/mm3 (1.8-7.7) 01/21/19 00:48 Seg Neutrophils # Man 3.0 K/mm3 (1.8-7.7) 01/22/19 04:24 Band Neutrophils # 0.0 K/mm3 01/22/19 04:24 Lymphocytes # (Manual) 1.7 K/mm3 (1.2-5.4) 01/22/19 04:24 Abs React Lymphs (Man) 0.0 K/mm3 01/22/19 04:24 Monocytes # (Manual) 0.4 K/mm3 (0.0-0.8) 01/22/19 04:24 Eosinophils # (Manual) 0.8 K/mm3 (0.0-0.4) H 01/22/19 04:24 Basophils # (Manual) 0.0 K/mm3 (0.0-0.1) 01/22/19 04:24 Metamyelocytes # 0.0 K/mm3 01/22/19 04:24 Myelocytes # 0.0 K/mm3 01/22/19 04:24 Promyelocytes # 0.0 K/mm3 01/22/19 04:24 Blast Cells # 0.0 K/mm3 01/22/19 04:24 WBC Morphology Not Reportable 01/22/19 04:24 Hypersegmented Neuts Not Reportable 01/22/19 04:24 Hyposegmented Neuts Not Reportable 01/22/19 04:24 Hypogranular Neuts Not Reportable 01/22/19 04:24 Smudge Cells Not Reportable 01/22/19 04:24 Toxic Granulation Not Reportable 01/22/19 04:24 Toxic Vacuolation Not Reportable 01/22/19 04:24 Dohle Bodies Not Reportable 01/22/19 04:24 Pelger-Huet Anomaly Not Reportable 01/22/19 04:24 Aashish Rods Not Reportable 01/22/19 04:24 Platelet Estimate Consistent w auto 01/22/19 04:24 Clumped Platelets Not Reportable 01/22/19 04:24 Plt Clumps, EDTA Not Reportable 01/22/19 04:24 Large Platelets Not Reportable 01/22/19 04:24 Giant Platelets Not Reportable 01/22/19 04:24 Platelet Satelliting Not Reportable 01/22/19 04:24 Plt Morphology Comment Not Reportable 01/22/19 04:24 RBC Morphology Not Reportable 01/22/19 04:24 Dimorphic RBCs Not Reportable 01/22/19 04:24 Polychromasia Not Reportable 01/22/19 04:24 Hypochromasia Not Reportable 01/22/19 04:24 Poikilocytosis Not Reportable 01/22/19 04:24 Anisocytosis Not Reportable 01/22/19 04:24 Microcytosis Not Reportable 01/22/19 04:24 Macrocytosis 1+ 01/22/19 04:24 Spherocytes Not Reportable 01/22/19 04:24 Pappenheimer Bodies Not Reportable 01/22/19 04:24 Sickle Cells Not Reportable 01/22/19 04:24 Target Cells Few 01/22/19 04:24 Tear Drop Cells Not Reportable 01/22/19 04:24 Ovalocytes Few 01/22/19 04:24 Helmet Cells Not Reportable 01/22/19 04:24 Gómez-Mary Esther Bodies Not Reportable 01/22/19 04:24 [place] Rings Not Reportable 01/22/19 04:24 Petros Cells Not Reportable 01/22/19 04:24 Bite Cells Not Reportable 01/22/19 04:24 Crenated Cell Not Reportable 01/22/19 04:24 Elliptocytes Not Reportable 01/22/19 04:24 Acanthocytes (Spur) Not Reportable 01/22/19 04:24 Rouleaux Not Reportable 01/22/19 04:24 Hemoglobin C Crystals Not Reportable 01/22/19 04:24 Schistocytes Not Reportable 01/22/19 04:24 Malaria parasites Not Reportable 01/22/19 04:24 Andre Bodies Not Reportable 01/22/19 04:24 Hem Pathologist Commnt No 01/22/19 04:24 PT 13.4 Sec. (12.2-14.9) 01/22/19 04:24 INR 1.03 (0.87-1.13) 01/22/19 04:24 APTT 28.0 Sec. (24.2-36.6) 01/22/19 04:24 Sodium 141 mmol/L (137-145) 01/22/19 04:24 Potassium 3.6 mmol/L (3.6-5.0) 01/22/19 04:24 Chloride 103.5 mmol/L (98-107) 01/22/19 04:24 Carbon Dioxide 24 mmol/L (22-30) 01/22/19 04:24 Anion Gap 17 mmol/L 01/22/19 04:24 BUN 11 mg/dL (9-20) 01/22/19 04:24 Creatinine 0.8 mg/dL (0.8-1.5) 01/22/19 04:24 Estimated GFR > 60 ml/min 01/22/19 04:24 BUN/Creatinine Ratio 14 % 01/22/19 04:24 Glucose 95 mg/dL (75-100) 01/22/19 04:24 Hemoglobin A1c 5.6 % (4-6) 01/22/19 04:24 Calcium 9.1 mg/dL (8.4-10.2) 01/22/19 04:24 AST 35 units/L (5-40) 01/24/19 06:42 ALT 48 units/L (7-56) 01/22/19 12:31 Alkaline Phosphatase 84 units/L (35-129) 01/22/19 12:31 Total Creatine Kinase 881 units/L (55-170) H 01/24/19 06:42 CK-MB (CK-2) 20.5 ng/mL (0.0-4.0) H 01/21/19 Unknown CK-MB (CK-2) Rel Index 0.3 (0-4) 01/21/19 Unknown Troponin T < 0.010 ng/mL (0.00-0.029) 01/21/19 Unknown Triglycerides 79 mg/dL (2-149) 01/23/19 05:21 Cholesterol 200 mg/dL (50-199) H 01/23/19 05:21 LDL Cholesterol Direct 111 mg/dL (50-130) 01/23/19 05:21 HDL Cholesterol 79 mg/dL (40-59) H 01/23/19 05:21 Cholesterol/HDL Ratio 2.53 % 01/23/19 05:21 Amylase 123 units/L (27-131) 01/22/19 12:31 Lipase 14 units/L (13-60) 01/22/19 12:31 Urine Color Straw (Yellow) 01/21/19 01:42 Urine Turbidity Clear (Clear) 01/21/19 01:42 Urine pH 7.0 (5.0-7.0) 01/21/19 01:42 Ur Specific [place] 1.011 (1.003-1.030) 01/21/19 01:42 Urine Protein <15 mg/dl mg/dL (Negative) 01/21/19 01:42 Urine Glucose (UA) Neg mg/dL (Negative) 01/21/19 01:42 Urine Ketones Neg mg/dL (Negative) 01/21/19 01:42 Urine Blood Neg (Negative) 01/21/19 01:42 Urine Nitrite Neg (Negative) 01/21/19 01:42 Urine Bilirubin Neg (Negative) 01/21/19 01:42 Urine Urobilinogen < 2.0 mg/dL (<2.0) 01/21/19 01:42 Ur Leukocyte Esterase Neg (Negative) 01/21/19 01:42 Urine WBC (Auto) 1.0 /HPF (0.0-6.0) 01/21/19 01:42 Urine RBC (Auto) < 1.0 /HPF (0.0-6.0) 01/21/19 01:42 Salicylates 1.0 mg/dL (2.8-20.0) L 01/21/19 00:48 Urine Opiates Screen Presumptive negative 01/21/19 01:42 Urine Methadone Screen Presumptive negative 01/21/19 01:42 Acetaminophen < 5.0 ug/mL (10.0-30.0) L 01/21/19 00:48 Ur Barbiturates Screen Presumptive negative 01/21/19 01:42 Valproic Acid 8.1 ug/mL (50-100) L 01/22/19 12:31 Ur Phencyclidine Scrn Presumptive negative 01/21/19 01:42 Ur Amphetamines Screen Presumptive negative 01/21/19 01:42 U Benzodiazepines Scrn Presumptive negative 01/21/19 01:42 [place] 0.1 mmol/L (0.0-1.2) 01/24/19 06:42 Urine Cocaine Screen Presumptive positive 01/21/19 01:42 U Marijuana (THC) Screen Presumptive positive 01/21/19 01:42 Drugs of Abuse Note Disclamer 01/21/19 01:42 Plasma/Serum Alcohol < 0.01 % (0-0.07) 01/21/19 00:48 Active Medications - Current Medications Current Medications: Generic Name Dose Route Start Last Admin Trade Name Freq PRN Reason Stop Dose Admin Acetaminophen 650 mg 01/21/19 04:07 Tylenol PO Q4H PRN Pain MILD(1-3)/Fever >100.5/BRENNAN Amlodipine Besylate 10 mg 01/21/19 16:00 01/24/19 09:59 Amlodipine PO 10 mg QDAY LETY Administration Benztropine Mesylate 0.5 mg 01/22/19 12:00 01/24/19 10:01 Cogentin PO 0.5 mg DAILY LETY Administration Clonazepam 0.5 mg 01/22/19 20:00 01/24/19 10:00 Klonopin PO 0.5 mg BID LETY Administration Diphenhydramine HCl 25 mg 01/22/19 20:33 01/23/19 21:23 Benadryl IV 25 mg Q6H PRN Administration Itching Divalproex Sodium 500 mg 01/23/19 14:00 01/24/19 10:01 Depakote Er PO 500 mg BID LETY Administration Heparin Sodium (Porcine) 5,000 unit 01/21/19 14:00 01/24/19 13:58 Heparin SUB-Q 5,000 unit Q8HR LETY Administration Hydralazine HCl 10 mg 01/21/19 22:34 Apresoline IV Q4H PRN Blood Pressure Hydrochlorothiazide 12.5 mg 01/21/19 16:00 01/24/19 10:00 Hctz PO 12.5 mg QDAY LETY Administration Sodium Chloride 1,000 mls @ 75 mls/hr 01/21/19 05:00 01/21/19 16:31 Nacl 0.9% 1000 Ml IV 150 mls/hr DIRECT LETY Administration Lisinopril 5 mg 01/21/19 23:00 01/24/19 09:59 Zestril PO 5 mg BID LETY Administration Lorazepam 2 mg 01/22/19 15:00 01/24/19 13:58 Ativan IV 2 mg Q4H PRN Administration Agitation Magnesium Hydroxide 30 ml 01/21/19 04:07 Milk Of Magnesia PO Q4H PRN Constipation Morphine Sulfate 2 mg 01/21/19 04:07 01/24/19 13:58 Morphine IV 2 mg Q4H PRN Administration Pain, Moderate (4-6) Ondansetron HCl 4 mg 01/21/19 04:07 Zofran IV Q8H PRN Nausea And Vomiting Paliperidone 3 mg 01/22/19 12:00 01/24/19 10:00 Invega PO 3 mg QDAY LETY Administration Sodium Chloride 10 ml 01/21/19 10:00 01/24/19 10:01 Sodium Chloride Flush Syringe 10 Ml IV 10 ml BID LETY Administration Sodium Chloride 10 ml 01/21/19 04:07 Sodium Chloride Flush Syringe 10 Ml IV PRN PRN LINE FLUSH
--- NOTE | 2019-01-24 16:35 | Progress Note ---
Subjective - Reason for Consult Consult date: 01/24/19 Reason for consult: Psychiatry Follow-up - Chief Complaint Chief complaint: "They are robbing me" 39 y.o. AA male who presented to the ER for substance abuse and SI's. Today the patient was still hyper verbal and labile during the assessment. he called the police from his room because he felt like the staff is robbing him. He's fixated about [place] being aware of his admission soon. The patient needed redirection throughout the interview to keep him on topic. He denies SI/HI's and AVh's. No indications of side effects from his medication. Mental Status Exam - Vital signs Last Vital Signs Temp 98.2 F 01/24/19 04:15 Pulse 100 H 01/24/19 12:00 Resp 19 01/24/19 12:00 BP 142/94 01/24/19 09:59 Pulse Ox 100 01/24/19 12:00 - Exam Narrative exam: MSE: Appearance: in hospital attire Behavior: regular eye contact Speech: hyper verbal Mood:: labile Affect: congruent to mood Thought Process: tangential, disorganized Thought Content: denies SI/HI's and AVH's, grandiose, paranoia Motor Activity: ambulatory Cognition: A/O x3 Insight: poor Judgment: poor Assessment and Plan Impression: Unspecified Mood DO with psy features. Substance Use DO (cocaine). Cannabis Use DO. The patient is manic. Today the patient was still labile during the assessment. CK 881, trending down. DDx: Bipolar DO with psychosis, Substance Induced Mood/Psychotic DO Recommendation/Plan: Continue 1013, Invega 3 mg PO daily for mood/psychosis, Cogentin 0.5 mg PO daily for EPS prevention, and Klonopin i0.5 mg PO BID for anxiety. Start Depakote 500 mg PO BID for mood. Attempted to discuss the importance of proper diet and exercise with the patient reference his lipid panel. Dispo: The patient was referred to inpatient psy services. Staffed with Dr Osmin Dalal.
[2019-01-24] MEDS: diphenhydrAMINE 50 MG/ML VIAL IV PRN ×2 (17:00→23:28)
[2019-01-25] MEDS: LORazepam 2 MG/ML VIAL IV PRN (02:28)
[2019-01-25 06:06] VITALS: BP 135/90
[2019-01-25] MEDS: HEPARIN 5,000 UNIT/1 ML VIAL SUB-Q SCH (06:42)
--- NOTE | 2019-01-25 08:13 | Progress Note ---
Subjective - Reason for Consult Consult date: 01/25/19 Reason for consult: Psychiatry Follow-up - Chief Complaint Chief complaint: "The patient is asleep" 39 y.o. AA male who presented to the ER for substance abuse and SI's. Today the patient was asleep. Per the staff, the patient agitated overnight and PRN medication had to be administered. Mental Status Exam - Vital signs Last Vital Signs Temp 98.3 F 01/25/19 06:05 Pulse 89 01/25/19 06:05 Resp 18 01/25/19 06:05 BP 135/90 01/25/19 06:05 Pulse Ox 100 01/25/19 06:05 - Exam Narrative exam: Unable to complete the MSE because the patient was asleep. Assessment and Plan Impression: Unspecified Mood DO with psy features. Substance Use DO (cocaine). Cannabis Use DO. The patient is manic. Today the patient was asleep. DDx: Bipolar DO with psychosis, Substance Induced Mood/Psychotic DO Recommendation/Plan: Continue 1013, Invega 3 mg PO daily for mood/psychosis, Cogentin 0.5 mg PO daily for EPS prevention, and Klonopin i0.5 mg PO BID for anxiety. Start Depakote 500 mg PO BID for mood. Attempted to discuss the importance of proper diet and exercise with the patient reference his lipid panel. Dispo: The patient was accepted at [facility] for inpatient psy services. Will staff with Dr Osmin Dalal.
[2019-01-25] MEDS: BENZTROPINE 0.5 MG TAB PO SCH (09:35)
[2019-01-25] MEDS: hydroCHLOROthiazide 12.5 MG CAP PO SCH (09:35)
[2019-01-25] MEDS: LISINOPRIL 5 MG TAB PO SCH (09:35)
[2019-01-25] MEDS: PALIPERIDONE ER 3 MG TAB PO SCH (09:35)
[2019-01-25] MEDS: amLODIPine 10 MG TAB PO SCH (09:35)
[2019-01-25] MEDS: clonazePAM 0.5 MG TAB PO SCH (09:35)
[2019-01-25] MEDS: DIVALPROEX ER 500 MG TAB PO SCH (09:38)
== END 2019-01-25 10:31 | DRG 558 ==
LOC: ED 00:27 → 4A 06:10
PROVIDERS: ADMIT Internal Medicine Geriatric Medicine; ATTEND Internal Medicine
DX: M62.82 Rhabdomyolysis (principal); R45.851 Suicidal ideations; F19.10 Other psychoactive substance abuse, uncomplicated; F31.9 Bipolar disorder, unspecified; I10 Essential (primary) hypertension; E11.9 Type 2 diabetes mellitus without complications; F10.10 Alcohol abuse, uncomplicated; F14.90 Cocaine use, unspecified, uncomplicated; K21.9 Gastro-esophageal reflux disease without esophagitis; Z79.899 Other long term (current) drug therapy; Z82.49 Family history of ischemic heart disease and other diseases of the circulatory system; Z83.3 Family history of diabetes mellitus; Z90.49 Acquired absence of other specified parts of digestive tract
CPT/HCPCS: 36415; 80048; 80061; 80164; 80178; 80307; 80320; 81001; 82150; 82550; 82553; 83036; 83690; 84075; 84450; 84460; 84484; 85007; 85025; 85610; 85730; 93005; 93010; 96374; 99406; G0378; G0480; J1200; J1644; J2060; J2270; J3486; J7030; Q0177

== ENCOUNTER 2019-03-03 01:46 | Emergency (ER) | payer MEDICARE ==
[2019-03-03 02:15] VITALS: BP 171/106
[2019-03-03 04:46] LABS: Amphetamine Screen,Urine PRESUMPTIVE NEGATIVE; Benzodiazepines Screen,Urine PRESUMPTIVE NEGATIVE; Cocaine Screen,Urine PRESUMPTIVE NEGATIVE; Methadone Screen,Urine PRESUMPTIVE NEGATIVE; Opiate Screen,Urine PRESUMPTIVE NEGATIVE
[2019-03-03 04:47] LABS: Bilirubin,Urine NEG (Negative); Blood,Urine NEG (Negative); Color,Urine Amber (Yellow); Mucus,Urine 3+ /HPF; Urobilinogen,Urine < 2.0 mg/dL (<2.0)
[2019-03-03 05:04] LABS: Basophils % (Auto) 0.4 % (0.0-1.8); Eosinophils # (Auto) 0.2 K/mm3 (0.0-0.4); Eosinophils % (Auto) 2.5 % (0.0-4.3); Hematocrit 38.4 % (35.5-45.6); Hemoglobin 12.9 gm/dl (11.8-15.2); Lymphocytes # (Auto) 1.8 K/mm3 (1.2-5.4); Lymphocytes % (Auto) 25.8 % (13.4-35.0); Mean Corpuscular HGB Conc 34 % (32-34); Mean Corpuscular Volume 94 fl (84-94); Monocytes # (Auto) 0.5 K/mm3 (0.0-0.8); Monocytes % (Auto) 6.8 % (0.0-7.3); Platelet Count 272 K/mm3 (140-440); Red Blood Count 4.09 M/mm3 (3.65-5.03); Red Cell Distribution Width 14.3 % (13.2-15.2)
[2019-03-03 05:07] LABS: Cannabinoid Screen,Urine PRESUMPTIVE POSITIVE
[2019-03-03 05:22] LABS: BUN/Creatinine Ratio 10; Blood Urea Nitrogen 10 mg/dL (9-20); Calcium 9.4 mg/dL (8.4-10.2); Hemolysis Index 3
== END 2019-03-03 07:45 | disposition left against medical advice (07) ==
LOC: ED 01:46
DX: Z53.21 Procedure and treatment not carried out due to patient leaving prior to being seen by health care provider (principal)
CPT/HCPCS: 36415; 80048; 80307; 80320; 81001; 85025; G0480

== ENCOUNTER 2020-09-05 00:43 | Emergency (ER) | payer MEDICARE, OTHER, SELFPAY ==
[2020-09-05] MEDS ORDERED: ZIPRASIDONE MESYLATE 20 MG VIAL IM ONE ×2 (00:56→00:57)
[2020-09-05] MEDS ORDERED: WATER FOR INJ Sterile (PF) 10 ML ONE (00:56)
[2020-09-05] MEDS ORDERED: LORazepam 2 MG/ML VIAL ONE (00:58)
[2020-09-05] MEDS ORDERED: BENZTROPINE 2 MG/2 ML INJ IM ONE (00:58)
[2020-09-05] MEDS ORDERED: diphenhydrAMINE 50 MG/ML VIAL ONE (00:59)
--- NOTE | 2020-09-05 00:59 | Emergency Department Report ---
ED Psych HPI - General Chief Complaint: Psych Stated Complaint: HEARING VOICES Time Seen by Provider: 09/05/20 00:57 Source: patient, EMS Mode of arrival: Ambulatory - History of Present Illness Initial Comments: H/o drug abuse, and schizophrenia, here with acute psychosis after drug binge. No si, no hi. - Related Data Home Medications Medication Instructions Recorded Confirmed Last Taken Benztropine [Cogentin] 2 mg PO BID 11/21/15 01/21/19 Unknown Mirtazapine [Remeron] 15 mg PO HS 11/21/15 01/21/19 Unknown Paliperidone [Invega] 9 mg PO BID 11/21/15 01/21/19 Unknown lisinopriL [Zestril] 5 mg PO BID 11/21/15 01/21/19 Unknown Sertraline [Zoloft] 25 mg PO QDAY 01/21/19 01/21/19 Unknown Previous Rx's Medication Instructions Recorded Last Taken Type Divalproex [Demetris Valerio] 1 tab PO BID #60 01/23/19 Unknown Rx Gabapentin [Gralise] 600 mg PO TID #90 01/23/19 Unknown Rx amLODIPine 10 mg PO ONCE #30 01/23/19 Unknown Rx amLODIPine 10 mg PO QDAY #30 tablet 01/23/19 Unknown Rx cloNIDine [Catapres] 0.2 mg PO BID #60 01/23/19 Unknown Rx hydroCHLOROthiazide [HCTZ] 12.5 mg PO QDAY #30 cap 01/23/19 Unknown Rx hydroCHLOROthiazide [HCTZ] 12.5 mg PO QDAY #30 capsule 01/23/19 Unknown Rx Allergies Allergy/AdvReac Type Severity Reaction Status Date / Time aripiprazole [From Abilify] Allergy Seizure Verified 11/21/15 12:24 chlorpromazine HCl Allergy Seizure Verified 11/21/15 12:24 [From Thorazine] haloperidol [From Haldol] Allergy Seizure Verified 11/21/15 12:24 haloperidol lactate Allergy Seizure Verified 11/21/15 12:24 [From Haldol] olanzapine [From Zyprexa] Allergy Seizure Verified 11/21/15 12:24 quetiapine fumarate Allergy Seizure Verified 11/21/15 12:24 [From Seroquel] ziprasidone HCl [From Geodon] Allergy Seizure Verified 11/21/15 12:24 ziprasidone mesylate Allergy Seizure Verified 11/21/15 12:24 [From Donald] ED Review of Systems ROS: Stated complaint: HEARING VOICES Other details as noted in HPI ED Past Medical Hx - Past Medical History Previous Medical History?: Yes Hx Hypertension: Yes Hx GERD: Yes Hx Seizures: Yes Hx Psychiatric Treatment: Yes (Mood disorder, Bipolar, Depression) Additional medical history: boderline diabetic - Surgical History Past Surgical History?: Yes Hx Appendectomy: Yes Additional Surgical History: Right wrist, Left foot - Social History Smoking Status: Unknown if ever smoked Substance Use Type: Alcohol, Cocaine - Medications Home Medications: Home Medications Medication Instructions Recorded Confirmed Last Taken Type Benztropine [Cogentin] 2 mg PO BID 11/21/15 01/21/19 Unknown History Mirtazapine [Remeron] 15 mg PO HS 11/21/15 01/21/19 Unknown History Paliperidone [Invega] 9 mg PO BID 11/21/15 01/21/19 Unknown History lisinopriL [Zestril] 5 mg PO BID 11/21/15 01/21/19 Unknown History Sertraline [Zoloft] 25 mg PO QDAY 01/21/19 01/21/19 Unknown History Divalproex [Demetris Valerio] 1 tab PO BID #60 01/23/19 Unknown Rx Gabapentin [Gralise] 600 mg PO TID #90 01/23/19 Unknown Rx amLODIPine 10 mg PO ONCE #30 01/23/19 Unknown Rx amLODIPine 10 mg PO QDAY #30 tablet 01/23/19 Unknown Rx cloNIDine [Catapres] 0.2 mg PO BID #60 01/23/19 Unknown Rx hydroCHLOROthiazide [HCTZ] 12.5 mg PO QDAY #30 cap 01/23/19 Unknown Rx hydroCHLOROthiazide [HCTZ] 12.5 mg PO QDAY #30 capsule 01/23/19 Unknown Rx ED Physical Exam - General Limitations: No Limitations ED Medical Decision Making - Lab Data Result diagrams: 09/05/20 10:02 09/05/20 10:02 Critical care attestation.: If time is entered above; I have spent that time in minutes in the direct care of this critically ill patient, excluding procedure time. ED Disposition Clinical Impression: Polysubstance abuse, Suicidal ideation Disposition: DC/TX-65 PSY HOSP/PSY UNIT Is pt being admited?: No Does the pt Need Aspirin: No Condition: Stable Referrals: TAVON BAIN MD [Primary Care Provider] - 3-5 Days
[2020-09-05] MEDS ORDERED: LORazepam 2 MG/ML VIAL IM ONE (08:42)
--- NOTE | 2020-09-05 10:11 | Consultation ---
History of Present Illness - Reason for Consult Consult date: 09/05/20 Reason for consult: psychosis, agitation - History of Present Psychiatric Illness Per ER Note: H/o drug abuse, and schizophrenia, here with acute psychosis after drug binge. No si, no hi. Tyson Sue is a 40y/o male who was brought to the ER for acute psychosis. I attempted to evaluate the patient today. He is in the isolation room laughing and talking out loud to himself. I did not open the door, as the sitters state the patient has been agitated and kicking the door. PAST PSYCHIATRIC HISTORY: Unable to obtain PAST MEDICAL HISTORY: None reported Family Psychiatric History: None reported or documented SOCIAL HISTORY Unable to obtain REVIEW OF SYSTEMS Unable to assess MENTAL STATUS EXAMINATION Unable to obtain Diagnoses: Schizophrenia Treatment Plan [address] 125mg po BID Start Olanzapine 5mg po daily Geodon 20mg IM q6h prn agitation Sitter: Defer to primary Medical: per primary Disposition: Recommend acute psychiatric inpatient Will follow. Thank you for this consult Case staffed with Dr. Rodriguez Medications and Allergies Allergies Allergy/AdvReac Type Severity Reaction Status Date / Time aripiprazole [From Abilify] Allergy Seizure Verified 11/21/15 12:24 chlorpromazine HCl Allergy Seizure Verified 11/21/15 12:24 [From Thorazine] haloperidol [From Haldol] Allergy Seizure Verified 11/21/15 12:24 haloperidol lactate Allergy Seizure Verified 11/21/15 12:24 [From Haldol] olanzapine [From Zyprexa] Allergy Seizure Verified 11/21/15 12:24 quetiapine fumarate Allergy Seizure Verified 11/21/15 12:24 [From Seroquel] ziprasidone HCl [From Geodon] Allergy Seizure Verified 11/21/15 12:24 ziprasidone mesylate Allergy Seizure Verified 11/21/15 12:24 [From Geodon] Home Medications Medication Instructions Recorded Confirmed Last Taken Type Benztropine [Cogentin] 2 mg PO BID 11/21/15 01/21/19 Unknown History Mirtazapine [Remeron] 15 mg PO HS 11/21/15 01/21/19 Unknown History Paliperidone [Invega] 9 mg PO BID 11/21/15 01/21/19 Unknown History lisinopriL [Zestril] 5 mg PO BID 11/21/15 01/21/19 Unknown History Sertraline [Zoloft] 25 mg PO QDAY 01/21/19 01/21/19 Unknown History Divalproex [Demetris Valerio] 1 tab PO BID #60 01/23/19 Unknown Rx Gabapentin [Gralise] 600 mg PO TID #90 01/23/19 Unknown Rx amLODIPine 10 mg PO ONCE #30 01/23/19 Unknown Rx amLODIPine 10 mg PO QDAY #30 tablet 01/23/19 Unknown Rx cloNIDine [Catapres] 0.2 mg PO BID #60 01/23/19 Unknown Rx hydroCHLOROthiazide [HCTZ] 12.5 mg PO QDAY #30 cap 01/23/19 Unknown Rx hydroCHLOROthiazide [HCTZ] 12.5 mg PO QDAY #30 capsule 01/23/19 Unknown Rx Results All other labs normal.
[2020-09-05] MEDS ORDERED: ZIPRASIDONE MESYLATE 20 MG VIAL IM PRN (10:15)
[2020-09-05 10:26] LABS: Basophils % (Auto) 0.6 % (0.0-1.8); Eosinophils # (Auto) 0.1 K/mm3 (0.0-0.4); Eosinophils % (Auto) 2.8 % (0.0-4.3); Hematocrit 44.7 % (35.5-45.6); Hemoglobin 14.5 gm/dl (11.8-15.2); Lymphocytes % (Auto) 25.3 % (13.4-35.0); Mean Corpuscular HGB Conc 32 % (32-34); Mean Corpuscular Volume 94 fl (84-94); Monocytes # (Auto) 0.3 K/mm3 (0.0-0.8); Monocytes % (Auto) 8.5 % (0.0-7.3); Platelet Count 251 K/mm3 (140-440); Red Blood Count 4.77 M/mm3 (3.65-5.03); Red Cell Distribution Width 14.3 % (13.2-15.2)
--- NOTE | 2020-09-05 10:27 | Event Note ---
Date: 09/05/20 Patient is 40 years old male admitted to the ER for evaluation of acute psychosis. Patient was agitated and received 20 mg of Geodon IM last night and patient is calm. Vital signs stable. Labs still pending. Waiting for psychiatric placement.
[2020-09-05 10:44] LABS: BUN/Creatinine Ratio 12; Blood Urea Nitrogen 12 mg/dL (9-20); Calcium 9.6 mg/dL (8.4-10.2); Hemolysis Index 9
[2020-09-05] MEDS ORDERED: DIVALPROEX DR 125 MG TAB PO SCH (11:00)
== END 2020-09-05 18:52 ==
LOC: ED 00:43
DX: F20.9 Schizophrenia, unspecified (principal); Z20.822 Contact with and (suspected) exposure to COVID-19; I10 Essential (primary) hypertension; K21.9 Gastro-esophageal reflux disease without esophagitis; F31.9 Bipolar disorder, unspecified; Z90.49 Acquired absence of other specified parts of digestive tract; Z98.890 Other specified postprocedural states; Z79.899 Other long term (current) drug therapy; Z88.8 Allergy status to other drugs, medicaments and biological substances
CPT/HCPCS: 36415; 80048; 85025; 96372; 99285; J1200; J2060; J3486; U0003; 80320; G0480

== ENCOUNTER 2021-01-30 23:45 | Emergency (ER) | payer MEDICARE, OTHER ==
[2021-01-31] MEDS ORDERED: LORazepam 2 MG/ML VIAL IM STA (01:21)
--- NOTE | 2021-01-31 01:22 | Emergency Department Report ---
ED General Adult HPI - General Chief complaint: Pain General Stated complaint: My neck muscles are hurting me. I relapsed on cocaine and drug Time Seen by Provider: 01/31/21 01:15 Source: patient, RN notes reviewed, old records reviewed Mode of arrival: Ambulatory Limitations: Other (Clinical intoxication) - History of Present Illness Initial comments: The patient is a 41-year-old gentleman. He has a history of hypertension and polysubstance abuse, as well as psychiatric disease. The patient presents to the ER today with a complaint of painless nontraumatic bilateral paracervical muscular neck pain. The patient reports that he recently had a relapse on cocaine, meth, and drugs. The patient denies headache, midline cervical spine pain, chest pain, abdominal pain, shortness of breath extremity weakness and numbness, hallucinations, homicidality and suicidality. He is interested in doing detox. He is asking if he should take his clonidine. He denies other coingestions. He has not taking any pain medicine for his muscular neck pain. -: Gradual, hour(s), days(s) Location: neck, back Radiation: non-radiation Severity scale (0 -10): 8 Quality: aching Consistency: constant Improves with: none Worsens with: none - Related Data Home Medications Medication Instructions Recorded Confirmed Last Taken Benztropine [Cogentin] 2 mg PO BID 11/21/15 01/21/19 Unknown Mirtazapine [Remeron] 15 mg PO HS 11/21/15 01/21/19 Unknown Paliperidone [Invega] 9 mg PO BID 11/21/15 01/21/19 Unknown lisinopriL [Zestril] 5 mg PO BID 11/21/15 01/21/19 Unknown Sertraline [Zoloft] 25 mg PO QDAY 01/21/19 01/21/19 Unknown Previous Rx's Medication Instructions Recorded Last Taken Type Divalproex [Demetris Valerio] 1 tab PO BID #60 01/23/19 Unknown Rx Gabapentin [Gralise] 600 mg PO TID #90 01/23/19 Unknown Rx amLODIPine 10 mg PO ONCE #30 01/23/19 Unknown Rx cloNIDine [Catapres] 0.2 mg PO BID #60 01/23/19 Unknown Rx hydroCHLOROthiazide [HCTZ] 12.5 mg PO QDAY #30 cap 01/23/19 Unknown Rx hydroCHLOROthiazide [HCTZ] 12.5 mg PO QDAY #30 capsule 01/23/19 Unknown Rx amLODIPine 10 mg PO QDAY #30 tablet 01/31/21 Unknown Rx Allergies Allergy/AdvReac Type Severity Reaction Status Date / Time aripiprazole [From Abilify] Allergy Seizure Verified 11/21/15 12:24 chlorpromazine HCl Allergy Seizure Verified 11/21/15 12:24 [From Thorazine] haloperidol [From Haldol] Allergy Seizure Verified 11/21/15 12:24 haloperidol lactate Allergy Seizure Verified 11/21/15 12:24 [From Haldol] olanzapine [From Zyprexa] Allergy Seizure Verified 11/21/15 12:24 quetiapine fumarate Allergy Seizure Verified 11/21/15 12:24 [From Seroquel] ziprasidone HCl [From Geodon] Allergy Seizure Verified 11/21/15 12:24 ziprasidone mesylate Allergy Seizure Verified 11/21/15 12:24 [From Geodon] ED Review of Systems ROS: Stated complaint: NECK/SPINE/FEET PAIN Other details as noted in HPI Constitutional: denies: fever Eyes: denies: eye discharge ENT: denies: epistaxis Respiratory: denies: cough Cardiovascular: denies: chest pain Gastrointestinal: denies: abdominal pain Musculoskeletal: arthralgia, myalgia Neurological: denies: weakness Psychiatric: denies: auditory hallucinations, visual hallucinations, homicidal thoughts, suicidal thoughts ED Past Medical Hx - Past Medical History Hx Hypertension: Yes Hx GERD: Yes Hx Seizures: Yes Hx Psychiatric Treatment: Yes (Mood disorder, Bipolar, Depression) Additional medical history: boderline diabetic - Surgical History Hx Appendectomy: Yes Additional Surgical History: Right wrist, Left foot - Social History Smoking Status: Current Every Day Smoker - Medications Home Medications: Home Medications Medication Instructions Recorded Confirmed Last Taken Type Benztropine [Cogentin] 2 mg PO BID 11/21/15 01/21/19 Unknown History Mirtazapine [Remeron] 15 mg PO HS 11/21/15 01/21/19 Unknown History Paliperidone [Invega] 9 mg PO BID 11/21/15 01/21/19 Unknown History lisinopriL [Zestril] 5 mg PO BID 11/21/15 01/21/19 Unknown History Sertraline [Zoloft] 25 mg PO QDAY 01/21/19 01/21/19 Unknown History Divalproex [Demetris Valerio] 1 tab PO BID #60 01/23/19 Unknown Rx Gabapentin [Gralise] 600 mg PO TID #90 01/23/19 Unknown Rx amLODIPine 10 mg PO ONCE #30 01/23/19 Unknown Rx cloNIDine [Catapres] 0.2 mg PO BID #60 01/23/19 Unknown Rx hydroCHLOROthiazide [HCTZ] 12.5 mg PO QDAY #30 cap 01/23/19 Unknown Rx hydroCHLOROthiazide [HCTZ] 12.5 mg PO QDAY #30 capsule 01/23/19 Unknown Rx amLODIPine 10 mg PO QDAY #30 tablet 01/31/21 Unknown Rx ED Physical Exam - General Limitations: Other (Intoxication) General appearance: appears intoxicated, anxious - Head Head exam: Present: atraumatic, normocephalic - Eye Eye exam: Present: normal appearance, EOMI. Absent: nystagmus - ENT ENT exam: Present: normal exam, normal orophraynx, mucous membranes moist, normal external ear exam - Neck Neck exam: Present: normal inspection, full ROM. Absent: tenderness, meningismus - Respiratory Respiratory exam: Present: normal lung sounds bilaterally. Absent: respiratory distress, wheezes, rales, rhonchi, stridor, decreased breath sounds - Cardiovascular Cardiovascular Exam: Present: regular rate, normal rhythm, normal heart sounds. Absent: bradycardia, tachycardia, irregular rhythm, systolic murmur, diastolic murmur, rubs, gallop - GI/Abdominal GI/Abdominal exam: Present: soft. Absent: distended, tenderness, guarding, rebound, rigid, pulsatile mass - Rectal Rectal exam: Present: deferred - Extremities Exam Extremities exam: Present: normal inspection, full ROM, other (2+ pulses noted in the bilateral upper and lower extremities. There is no palpable cord. negative Homans sign. Muscular compartments are soft. The pelvis is stable.). Absent: pedal edema, calf tenderness - Back Exam Back exam: Present: normal inspection, full ROM. Absent: tenderness, CVA te nderness (R), CVA tenderness (L), paraspinal tenderness, vertebral tenderness - Neurological Exam Neurological exam: Present: alert, normal gait, other (No facial droop. Tongue midline. Extraocular movements intact bilaterally. Facial sensation intact to light touch in V1, V2, V3 distribution bilaterally. 5 and a 5 strength in 4 extremities. Sensation intact to light touch in 4 extremities.). Absent: motor sensory deficit - Psychiatric Psychiatric exam: Present: anxious. Absent: homicidal ideation, suicidal id eation - Skin Skin exam: Present: warm, dry, intact, normal color. Absent: rash ED Course Vital Signs 01/31/21 01/31/21 00:56 02:38 Temperature 97.6 F Pulse Rate 95 H 74 Respiratory 20 18 Rate Blood Pressure 166/103 152/91 [Right] O2 Sat by Pulse 99 99 Oximetry - Reevaluation(s) Reevaluation #1: 01/31/21 02:42 Differential diagnosis, including the not limited to: Sympathomimetic intoxication, elevated CK, drug abuse, medical screening examination, behavioral health screening examination, muscular neck pain Assessment and plan: 41-year-old gentleman, who was afebrile with reassuring vital signs, with exception of elevated blood pressure/hypertension which appears to be chronic (please reference the [employer] policy on asymptomatic hypertension), who presents with musculoskeletal cramps and pain, after recreational drug ingestion. The patient is clinically intoxicated but there is no history of trauma. He does walk with a steady gait. He is somewhat hyperverbal, and difficult to redirect. Does not meet criteria for 1013 hold [place] improved with Valium. Denies urinary symptoms. We will await clinical sobriety, and discharge with outpatient resources. Can follow-up with an outpatient primary care doctor for chronic hypertension. 01/31/21 02:45 The patient denies recent IV drug use. No track moya noted on skin. Muscular compartments are soft 01/31/21 04:42 Patient awake, alert, oriented, sober, with no active vomiting, having lucid conversation on cell phone, and in no acute distress. Discharge with outpatient follow-up. ED Medical Decision Making - Lab Data Result diagrams: 01/31/21 01:33 01/31/21 01:33 Vital Signs 01/31/21 01/31/21 00:56 02:38 Temperature 97.6 F Pulse Rate 95 H 74 Respiratory 20 18 Rate Blood Pressure 166/103 152/91 [Right] O2 Sat by Pulse 99 99 Oximetry Lab Results 01/31/21 01/31/21 01/31/21 Range/Units 01:33 01:33 01:33 Hgb (11.8-15.2) gm/dl Hct (35.5-45.6) % Sodium 139 (137-145) mmol/L Potassium 3.6 (3.6-5.0) mmol/L Chloride 101.9 (98-107) mmol/L Carbon Dioxide 25 (22-30) mmol/L Anion Gap 16 mmol/L BUN 19 (9-20) mg/dL Creatinine 0.8 (0.8-1.3) mg/dL Estimated GFR > 60 ml/min BUN/Creatinine Ratio 24 % Glucose 96 (75-100) mg/dL Calcium 8.7 (8.4-10.2) mg/dL Magnesium (1.7-2.3) mg/dL Total Bilirubin 0.30 (0.1-1.2) mg/dL AST 27 (5-40) units/L ALT 25 (7-56) units/L Alkaline Phosphatase 90 (35-129) units/L Total Creatine Kinase (55-170) units/L Total Protein 7.8 (6.3-8.2) g/dL Albumin 4.3 (3.9-5) g/dL Albumin/Globulin Ratio 1.2 % Salicylates < 0.3 L (2.8-20.0) mg/dL Acetaminophen 5.0 L (10.0-30.0) ug/mL Plasma/Serum Alcohol (0-0.07) % 01/31/21 01/31/21 01/31/21 Range/Units 01:33 01:33 01:33 Hgb 12.6 (11.8-15.2) gm/dl Hct 37.9 (35.5-45.6) % Sodium (137-145) mmol/L Potassium (3.6-5.0) mmol/L Chloride (98-107) mmol/L Carbon Dioxide (22-30) mmol/L Anion Gap mmol/L BUN (9-20) mg/dL Creatinine (0.8-1.3) mg/dL Estimated GFR ml/min BUN/Creatinine Ratio % Glucose (75-100) mg/dL Calcium (8.4-10.2) mg/dL Magnesium 1.70 (1.7-2.3) mg/dL Total Bilirubin (0.1-1.2) mg/dL AST (5-40) units/L ALT (7-56) units/L Alkaline Phosphatase (35-129) units/L Total Creatine Kinase 732 H (55-170) units/L Total Protein (6.3-8.2) g/dL Albumin (3.9-5) g/dL Albumin/Globulin Ratio % Salicylates (2.8-20.0) mg/dL Acetaminophen (10.0-30.0) ug/mL Plasma/Serum Alcohol < 0.01 (0-0.07) % Critical care attestation.: If time is entered above; I have spent that time in minutes in the direct care of this critically ill patient, excluding procedure time. ED Disposition Clinical Impression: Polysubstance abuse, Elevated blood pressure reading, Muscle cramps Disposition: 01 HOME / SELF CARE / HOMELESS Is pt being admited?: No Does the pt Need Aspirin: No Condition: Stable Instructions: Muscle Cramps and Spasms, [id number], Substance Use Disorder and Mental Illness Additional Instructions: We recommend that the patient discontinue consumption of cocaine, meth and recreational drugs. Long-term consumption may cause addiction, , disability, paralysis, and permanent loss of quality of life. Please drink 6 cups of water per day indefinitely. Please take your outpatient blood pressure medications. Please follow-up with an outpatient primary care doctor or mental health specialist within the next 3 to 5 days. The patient was evaluated in the emergency room today, and not found to have any immediate medical contraindication that would preclude outpatient detox therapy. The patient may take [id number] acetaminophen or ibuprofen as needed for physical pain. Please note that patient was found to have high blood pressure today. Long-term complications of hypertension elevated blood pressure include stroke, heart attack, disability, , paralysis, and permanent loss of quality of life. Prescriptions: amLODIPine 10 mg PO QDAY #30 tablet Referrals: [facility] [Outside] - 3-5 Days [facility] [Outside] - 3-5 Days
[2021-01-31 02:25] LABS: Hematocrit 37.9 % (35.5-45.6); Hemoglobin 12.6 gm/dl (11.8-15.2)
[2021-01-31 02:32] LABS: Alanine Aminotransferase 25 units/L (7-56); Albumin 4.3 g/dL (3.9-5); BUN/Creatinine Ratio 24; Blood Urea Nitrogen 19 mg/dL (9-20); Calcium 8.7 mg/dL (8.4-10.2); Hemolysis Index 4
[2021-01-31 05:38] VITALS: BP 136/78
== END 2021-01-31 05:17 | disposition home or self-care (01) ==
LOC: ED 23:45
DX: F19.10 Other psychoactive substance abuse, uncomplicated (principal); R03.0 Elevated blood-pressure reading, without diagnosis of hypertension; R25.2 Cramp and spasm; K21.9 Gastro-esophageal reflux disease without esophagitis; F31.9 Bipolar disorder, unspecified; Z98.890 Other specified postprocedural states; F17.200 Nicotine dependence, unspecified, uncomplicated; Z88.8 Allergy status to other drugs, medicaments and biological substances
CPT/HCPCS: 36415; 80053; 82550; 83735; 85014; 85018; 96372; 99283; J2060; 80320; G0480

== ENCOUNTER 2021-10-06 14:44 | Emergency (ER) | payer MEDICARE | END 2021-10-06 19:00 | disposition left against medical advice (07) | LOC: ED 14:44 | DX: R69 Illness, unspecified (principal); Z53.21 Procedure and treatment not carried out due to patient leaving prior to being seen by health care provider ==

== ENCOUNTER 2021-10-06 23:35 | Emergency (ER) | payer MEDICARE ==
[2021-10-07 01:37] LABS: WBC,Urine > 182.0 /HPF (0.0-6.0)
[2021-10-07 01:38] LABS: Bilirubin,Urine Negative (Negative); Color,Urine Colorless (Yellow)
[2021-10-07 01:39] LABS: Blood,Urine Negative (Negative)
[2021-10-07 01:40] LABS: Amphetamine Screen,Urine PRESUMPTIVE NEGATIVE; Benzodiazepines Screen,Urine PRESUMPTIVE NEGATIVE; Cannabinoid Screen,Urine PRESUMPTIVE POSITIVE; Cocaine Screen,Urine PRESUMPTIVE POSITIVE; Methadone Screen,Urine PRESUMPTIVE NEGATIVE; Opiate Screen,Urine PRESUMPTIVE NEGATIVE
[2021-10-07 01:42] LABS: Basophils % (Auto) 0.5 % (0.0-1.8); Eosinophils # (Auto) 0.2 K/mm3 (0.0-0.4); Eosinophils % (Auto) 4.3 % (0.0-4.3); Hematocrit 36.7 % (35.5-45.6); Hemoglobin 11.9 gm/dl (11.8-15.2); Lymphocytes # (Auto) 1.6 K/mm3 (1.2-5.4); Lymphocytes % (Auto) 33.4 % (13.4-35.0); Mean Corpuscular HGB Conc 33 % (32-34); Mean Corpuscular Volume 93 fl (84-94); Monocytes # (Auto) 0.6 K/mm3 (0.0-0.8); Monocytes % (Auto) 11.8 % (0.0-7.3); Platelet Count 228 K/mm3 (140-440); Red Blood Count 3.95 M/mm3 (3.65-5.03); Red Cell Distribution Width 14.7 % (13.2-15.2)
[2021-10-07] MEDS ORDERED: LIDOCAINE-MPF (1%) 10 MG/1 ML VIAL 5 ML INFILTRATI ONE (01:54)
[2021-10-07] MEDS ORDERED: AZITHROMYCIN 1 GM ORAL PWDR PACKET PO ONE (01:54)
--- NOTE | 2021-10-07 01:55 | Emergency Department Report ---
ED Psych HPI - General Chief Complaint: Medical Clearance Stated Complaint: SICK/MENTAL HEALTH CONCERNS Time Seen by Provider: 10/07/21 01:52 Source: patient, RN notes reviewed, old records reviewed Mode of arrival: Ambulatory Limitations: Other (Patient is acutely psychotic) - History of Present Illness Initial Comments: The patient was evaluated in the emergency department for symptoms described in the history of present illness. He/she was evaluated in the context of the global COVID-19 pandemic, which necessitated consideration that the patient might be at risk for infection with the virus that causes COVID-19. Institutional protocols and algorithms that pertain to the evaluation of patients at risk for COVID-19 are in a state of rapid change based on information released by regulatory bodies including the CDC and federal and state organizations. These policies and algorithms were followed during the patient's care in the emergency department. Please note that these policies, procedures and recommendations changed on a rapid basis. This patient is a 41-year-old gentleman who presented to triage acutely psychotic. As per verbal report from triage nurse, he was agitated, mumbling, speaking nonsensically, and appeared to be responding to internal stimuli. When I evaluate the patient, he denies physical pain, he is laughing, giggling, and moving his body. He states he thinks he has an STI. The patient reportedly walked here. The patient is not accompanied by friends or family at this time for collateral information or additional information. To me, the patient denies homicidality and suicidality as well as overdose. MD Complaint: altered mental status -: unknown - Related Data Home Medications Medication Instructions Recorded Confirmed Last Taken Benztropine [Cogentin] 2 mg PO BID 11/21/15 01/21/19 Unknown Mirtazapine [Remeron] 15 mg PO HS 11/21/15 01/21/19 Unknown Paliperidone [Invega] 9 mg PO BID 11/21/15 01/21/19 Unknown lisinopriL [Zestril] 5 mg PO BID 11/21/15 01/21/19 Unknown Sertraline [Zoloft] 25 mg PO QDAY 01/21/19 01/21/19 Unknown Previous Rx's Medication Instructions Recorded Last Taken Type Divalproex [Demetris Valerio] 1 tab PO BID #60 01/23/19 Unknown Rx Gabapentin [Gralise] 600 mg PO TID #90 01/23/19 Unknown Rx amLODIPine 10 mg PO ONCE #30 01/23/19 Unknown Rx cloNIDine [Catapres] 0.2 mg PO BID #60 01/23/19 Unknown Rx hydroCHLOROthiazide [HCTZ] 12.5 mg PO QDAY #30 cap 01/23/19 Unknown Rx hydroCHLOROthiazide [HCTZ] 12.5 mg PO QDAY #30 capsule 01/23/19 Unknown Rx amLODIPine 10 mg PO QDAY #30 tablet 01/31/21 Unknown Rx Allergies Allergy/AdvReac Type Severity Reaction Status Date / Time No Known Allergies Allergy Unverified 10/07/21 01:40 ED Review of Systems ROS: Stated complaint: SICK/MENTAL HEALTH CONCERNS Other details as noted in HPI Comment: Unobtainable due to pts medical conditions Constitutional: fever Eyes: denies: eye discharge ENT: denies: epistaxis Respiratory: denies: cough Cardiovascular: denies: chest pain Gastrointestinal: denies: abdominal pain Genitourinary: dysuria Musculoskeletal: denies: back pain Psychiatric: denies: homicidal thoughts, suicidal thoughts ED Past Medical Hx - Past Medical History Previous Medical History?: Yes Hx Hypertension: Yes Hx GERD: Yes Hx Seizures: Yes Hx Psychiatric Treatment: Yes (Mood disorder, Bipolar, Depression) Additional medical history: boderline diabetic - Surgical History Past Surgical History?: Yes Hx Appendectomy: Yes Additional Surgical History: Right wrist, Left foot - Social History Smoking Status: Never Smoker Substance Use Type: None - Medications Home Medications: Home Medications Medication Instructions Recorded Confirmed Last Taken Type Benztropine [Cogentin] 2 mg PO BID 11/21/15 01/21/19 Unknown History Mirtazapine [Remeron] 15 mg PO HS 11/21/15 01/21/19 Unknown History Paliperidone [Invega] 9 mg PO BID 11/21/15 01/21/19 Unknown History lisinopriL [Zestril] 5 mg PO BID 11/21/15 01/21/19 Unknown History Sertraline [Zoloft] 25 mg PO QDAY 01/21/19 01/21/19 Unknown History Divalproex [Demetris Valerio] 1 tab PO BID #60 01/23/19 Unknown Rx Gabapentin [Gralise] 600 mg PO TID #90 11/06/19 Unknown Rx amLODIPine 10 mg PO ONCE #30 01/23/19 Unknown Rx cloNIDine [Catapres] 0.2 mg PO BID #60 01/23/19 Unknown Rx hydroCHLOROthiazide [HCTZ] 12.5 mg PO QDAY #30 cap 01/23/19 Unknown Rx hydroCHLOROthiazide [HCTZ] 12.5 mg PO QDAY #30 capsule 01/23/19 Unknown Rx amLODIPine 10 mg PO QDAY #30 tablet 01/31/21 Unknown Rx ED Physical Exam - General Limitations: Other (Acute psychosis) General appearance: in no apparent distress - Head Head exam: Present: atraumatic, normocephalic - Eye Eye exam: Present: normal appearance, EOMI. Absent: nystagmus - ENT ENT exam: Present: normal exam, normal orophraynx, mucous membranes moist, normal external ear exam - Neck Neck exam: Present: normal inspection, full ROM. Absent: tenderness, meningismus - Respiratory Respiratory exam: Present: normal lung sounds bilaterally. Absent: respiratory distress, wheezes, rales, rhonchi, stridor, decreased breath sounds - Cardiovascular Cardiovascular Exam: Present: regular rate, normal rhythm, normal heart sounds. Absent: bradycardia, tachycardia, irregular rhythm, systolic murmur, diastolic murmur, rubs, gallop - GI/Abdominal GI/Abdominal exam: Present: soft. Absent: distended, tenderness, guarding, rebound, rigid, pulsatile mass - Rectal Rectal exam: Present: deferred - Extremities Exam Extremities exam: Present: normal inspection, full ROM, other (2+ pulses noted in the bilateral upper and lower extremities. There is no palpable cord. negative Homans sign. Muscular compartments are soft. The pelvis is stable.). Absent: pedal edema, calf tenderness - Back Exam Back exam: Present: normal inspection. Absent: tenderness, CVA tenderness (R), CVA tenderness (L), paraspinal tenderness, vertebral tenderness - Neurological Exam Neurological exam: Present: alert, normal gait, other (No facial droop. Tongue midline. Extraocular movements intact bilaterally. Facial sensation intact to light touch in V1, V2, V3 distribution bilaterally. 5 and a 5 strength in 4 extremities. Sensation intact to light touch in 4 extremities.). Absent: motor sensory deficit - Psychiatric Psychiatric exam: Present: anxious. Absent: homicidal ideation, suicidal ideation - Skin Skin exam: Present: warm, dry, intact, normal color. Absent: rash ED Course Vital Signs 10/07/21 10/07/21 00:55 02:02 Temperature 98.4 F Pulse Rate 88 Respiratory 16 18 Rate Blood Pressure 148/105 O2 Sat by Pulse 100 98 Oximetry ED Medical Decision Making - Lab Data Result diagrams: 10/07/21 01:19 10/07/21 01:19 Vital Signs 10/07/21 10/07/21 00:55 02:02 Temperature 98.4 F Pulse Rate 88 Respiratory 16 18 Rate Blood Pressure 148/105 O2 Sat by Pulse 100 98 Oximetry Lab Results 10/07/21 10/07/21 10/07/21 Range/Units 01:19 01:19 01:19 WBC 4.9 (4.5-11.0) K/mm3 RBC 3.95 (3.65-5.03) M/mm3 Hgb 11.9 (11.8-15.2) gm/dl Hct 36.7 (35.5-45.6) % MCV 93 (84-94) fl MCH 30 (28-32) pg MCHC 33 (32-34) % RDW 14.7 (13.2-15.2) % Plt Count 228 (140-440) K/mm3 Lymph % (Auto) 33.4 (13.4-35.0) % [place] % (Auto) 11.8 H (0.0-7.3) % Eos % (Auto) 4.3 (0.0-4.3) % Baso % (Auto) 0.5 (0.0-1.8) % Lymph # (Auto) 1.6 (1.2-5.4) K/mm3 [place] # (Auto) 0.6 (0.0-0.8) K/mm3 Eos # (Auto) 0.2 (0.0-0.4) K/mm3 Baso # (Auto) 0.0 (0.0-0.1) K/mm3 Seg Neutrophils % 50.0 (40.0-70.0) % Seg Neutrophils # 2.4 (1.8-7.7) K/mm3 Sodium 139 (137-145) mmol/L Potassium 4.0 (3.6-5.0) mmol/L Chloride 103.6 (98-107) mmol/L Carbon Dioxide 27 (22-30) mmol/L Anion Gap 12 mmol/L BUN 19 (9-20) mg/dL Creatinine 0.9 (0.8-1.3) mg/dL Estimated GFR > 60 ml/min BUN/Creatinine Ratio 21 % Glucose 99 (75-100) mg/dL Calcium 9.1 (8.4-10.2) mg/dL Total Creatine Kinase 499 H (55-170) units/L Urine Color (Yellow) Urine Turbidity (Clear) Urine pH (5.0-7.0) Ur Specific [place] (1.003-1.030) Urine Protein (Negative) mg/dL Urine Glucose (UA) (Negative) mg/dL Urine Ketones (Negative) mg/dL Urine Blood (Negative) Urine Nitrite (Negative) Ur Reducing Substances Urine Bilirubin (Negative) Urine Ictotest Urine Urobilinogen (<2.0) mg/dL Ur Leukocyte Esterase (Negative) Urine WBC (Auto) (0.0-6.0) /HPF Urine RBC (Auto) (0.0-6.0) /HPF Salicylates < 0.3 L (2.8-20.0) mg/dL Urine Opiates Screen Urine Methadone Screen Acetaminophen (10.0-30.0) ug/mL Ur Barbiturates Screen Valproic Acid 21.5 L (50-100) ug/mL Ur Phencyclidine Scrn Ur Amphetamines Screen U Benzodiazepines Scrn Urine Cocaine Screen U Marijuana (THC) Screen Drugs of Abuse Note 10/07/21 10/07/21 10/07/21 Range/Units 01:19 Unknown Unknown WBC (4.5-11.0) K/mm3 RBC (3.65-5.03) M/mm3 Hgb (11.8-15.2) gm/dl Hct (35.5-45.6) % MCV (84-94) fl MCH (28-32) pg MCHC (32-34) % RDW (13.2-15.2) % Plt Count (140-440) K/mm3 Lymph % (Auto) (13.4-35.0) % [place] % (Auto) (0.0-7.3) % Eos % (Auto) (0.0-4.3) % Baso % (Auto) (0.0-1.8) % Lymph # (Auto) (1.2-5.4) K/mm3 [place] # (Auto) (0.0-0.8) K/mm3 Eos # (Auto) (0.0-0.4) K/mm3 Baso # (Auto) (0.0-0.1) K/mm3 Seg Neutrophils % (40.0-70.0) % Seg Neutrophils # (1.8-7.7) K/mm3 Sodium (137-145) mmol/L Potassium (3.6-5.0) mmol/L Chloride (98-107) mmol/L Carbon Dioxide (22-30) mmol/L Anion Gap mmol/L BUN (9-20) mg/dL Creatinine (0.8-1.3) mg/dL Estimated GFR ml/min BUN/Creatinine Ratio % Glucose (75-100) mg/dL Calcium (8.4-10.2) mg/dL Total Creatine Kinase (55-170) units/L Urine Color Colorless (Yellow) Urine Turbidity Slightly cloudy (Clear) Urine pH 7.0 (5.0-7.0) Ur Specific [place] 1.005 (1.003-1.030) Urine Protein 30 mg/dl (Negative) mg/dL Urine Glucose (UA) Negative (Negative) mg/dL Urine Ketones Negative (Negative) mg/dL Urine Blood Negative (Negative) Urine Nitrite Negative (Negative) Ur Reducing Substances Not Reportable Urine Bilirubin Negative (Negative) Urine Ictotest Not Reportable Urine Urobilinogen 4.0 (<2.0) mg/dL Ur Leukocyte Esterase Large (Negative) Urine WBC (Auto) > 182.0 H (0.0-6.0) /HPF Urine RBC (Auto) 16.0 (0.0-6.0) /HPF Salicylates (2.8-20.0) mg/dL Urine Opiates Screen Presumptive negative Urine Methadone Screen Presumptive negative Acetaminophen 5.0 L (10.0-30.0) ug/mL Ur Barbiturates Screen Presumptive negative Valproic Acid (50-100) ug/mL Ur Phencyclidine Scrn Presumptive negative Ur Amphetamines Screen Presumptive negative U Benzodiazepines Scrn Presumptive negative Urine Cocaine Screen Presumptive positive U Marijuana (THC) Screen Presumptive positive Drugs of Abuse Note Disclamer - Medical Decision Making Differential diagnosis, including but not limited to: Psychosis, medical clearance for psychiatric admission, pyuria Assessment and plan: 41-year-old gentleman who presents is acutely psychotic. He meets criteria for 1013 hold. 1013 is ordered and reviewed by myself. His laboratory studies are reviewed and appreciated. CK will decrease on its own with rest and oral hydration. Renal function acceptable at this time. Does not require IV fluids. Pyuria reviewed and appreciated. Treat with ceftriaxone and azithromycin. COVID swab ordered. Laboratory studies otherwise reviewed and appreciated. At this point in time, this patient does not appear to have an immediate medical contraindication to psychiatric admission, evaluation, c onsultation and placement. The ER will follow along as the COVID swab results Critical care attestation.: If time is entered above; I have spent that time in minutes in the direct care of this critically ill patient, excluding procedure time. ED Disposition Clinical Impression: Pyuria, Medical clearance for psychiatric admission Disposition: [address] [place] [address] Is pt being admited?: No Does the pt Need Aspirin: No Condition: Good
[2021-10-07 02:01] LABS: BUN/Creatinine Ratio 21; Blood Urea Nitrogen 19 mg/dL (9-20); Calcium 9.1 mg/dL (8.4-10.2); Hemolysis Index 3
[2021-10-07] MEDS: LORazepam 2 MG/ML VIAL IM PRN ×2 (03:32→04:46)
[2021-10-07] MEDS: ZIPRASIDONE MESYLATE 20 MG VIAL IM PRN ×2 (03:32→04:46)
--- NOTE | 2021-10-07 08:28 | Consultation ---
History of Present Illness - Reason for Consult Consult date: 10/07/21 Reason for consult: psychosis - History of Present Psychiatric Illness HPI: This patient is a 41-year-old gentleman who presented to triage acutely psychotic. As per verbal report from triage nurse, he was agitated, mumbling, speaking nonsensically, and appeared to be responding to internal stimuli. When I evaluate the patient, he denies physical pain, he is laughing, giggling, and moving his body. I attempted to the evaluate this patient. He is in the seclusion room, sedated. It appears he was medicated a few hours prior. Will recommend inpatient treatment based on ER report, to get the patient stabilized on medication. PAST PSYCHIATRIC HISTORY: Unable to assess PAST MEDICAL HISTORY: None reported Family Psychiatric History: None reported or documented SOCIAL HISTORY Unable to assess REVIEW OF SYSTEMS Unable to assess MENTAL STATUS EXAMINATION Unable to assess Diagnoses: Bipolar Disorder Cocaine Use Disorder Treatment Plan 1013 Invega 3mg po daily Mirtazepine 15mg po qhs Sitter: per primary Medical: Per primary Disposition: Recommend acute psychiatric inpatient treatment Will follow. Thanks Case staffed by Dr. Rodriguez Medications and Allergies Allergies Allergy/AdvReac Type Severity Reaction Status Date / Time No Known Allergies Allergy Unverified 10/07/21 01:40 Home Medications Medication Instructions Recorded Confirmed Last Taken Type Benztropine [Cogentin] 2 mg PO BID 11/21/15 01/21/19 Unknown History Mirtazapine [Remeron] 15 mg PO HS 11/21/15 01/21/19 Unknown History Paliperidone [Invega] 9 mg PO BID 11/21/15 01/21/19 Unknown History lisinopriL [Zestril] 5 mg PO BID 11/21/15 01/21/19 Unknown History Sertraline [Zoloft] 25 mg PO QDAY 01/21/19 01/21/19 Unknown History Divalproex [Demetris Valerio] 1 tab PO BID #60 01/23/19 Unknown Rx Gabapentin [Gralise] 600 mg PO TID #90 01/23/19 Unknown Rx amLODIPine 10 mg PO ONCE #30 01/23/19 Unknown Rx cloNIDine [Catapres] 0.2 mg PO BID #60 01/23/19 Unknown Rx hydroCHLOROthiazide [HCTZ] 12.5 mg PO QDAY #30 cap 01/23/19 Unknown Rx hydroCHLOROthiazide [HCTZ] 12.5 mg PO QDAY #30 capsule 01/23/19 Unknown Rx amLODIPine 10 mg PO QDAY #30 tablet 01/31/21 Unknown Rx Active Meds: Active Medications Lorazepam (Lorazepam 2 Mg/Ml Vial) 2 mg IM Q4HR PRN PRN Reason: Agitation Last Admin: 10/07/21 03:32 Dose: 2 mg Ziprasidone (Ziprasidone Mesylate 20 Mg Vial) 10 mg IM Q2H PRN PRN Reason: Agitation Last Admin: 10/07/21 03:32 Dose: 10 mg Mental Status Exam - Vital signs Last Vital Signs Temp 98.3 F 10/07/21 03:16 Pulse 84 10/07/21 03:16 Resp 18 10/07/21 03:16 BP 155/106 10/07/21 03:16 Pulse Ox 99 10/07/21 03:16 Results Result Diagrams: 10/07/21 01:19 10/07/21 01:19 Abnormal lab results 10/07/21 10/07/21 10/07/21 Range/Units 01:19 01:19 01:19 [place] % (Auto) 11.8 H (0.0-7.3) % Total Creatine Kinase 499 H (55-170) units/L Urine WBC (Auto) (0.0-6.0) /HPF Salicylates < 0.3 L (2.8-20.0) mg/dL Acetaminophen (10.0-30.0) ug/mL Valproic Acid 21.5 L (50-100) ug/mL 10/07/21 10/07/21 Range/Units 01:19 Unknown [place] % (Auto) (0.0-7.3) % Total Creatine Kinase (55-170) units/L Urine WBC (Auto) > 182.0 H (0.0-6.0) /HPF Salicylates (2.8-20.0) mg/dL Acetaminophen 5.0 L (10.0-30.0) ug/mL Valproic Acid (50-100) ug/mL All other labs normal.
[2021-10-07] MEDS ORDERED: PALIPERIDONE ER 3 MG TAB PO SCH (10:00)
[2021-10-07] MEDS ORDERED: cloNIDine 0.1 MG TAB PO ONE (12:08)
--- NOTE | 2021-10-07 15:24 | Event Note ---
Date: 10/07/21 Chart reviewed. VSS. Pt is comfortable/well appearing. Denies any complaints and is in no distress.
[2021-10-07 20:49] VITALS: BP 134/94
[2021-10-07] MEDS ORDERED: MIRTAZAPINE 15 MG TAB PO SCH (22:00)
== END 2021-10-08 01:07 ==
LOC: ED 23:35
DX: R82.81 Pyuria (principal); R45.1 Restlessness and agitation; F32.A Depression, unspecified; Z13.30 Encounter for screening examination for mental health and behavioral disorders, unspecified; Z20.822 Contact with and (suspected) exposure to COVID-19
CPT/HCPCS: 36415; 80048; 80164; 80307; 81001; 82550; 85025; 96372; 99285; J0696; J2060; J3486; U0003; 80320; 99284; G0480

== ENCOUNTER 2021-11-07 11:24 | Emergency (ER) | payer MEDICARE ==
[2021-11-07 11:36] VITALS: BP 173/101
--- NOTE | 2021-11-07 11:40 | Emergency Department Report ---
Blank Doc - Documentation Documentation: 41-year-old male that came into the ER for medical clearance for reports. Den ies any SI/HI. Patient agrees to doing cocaine about an hour ago prior to arrival. 1- This is a initial triage assessment/medical screening only. Full assessment and work-up will be completed once the patient is in proper hospital gown, ED bed and in a private room setting. This initial assessment/diagnostic orders/clinical plan/ treatment(s) is/are subject to change based on pt's health status, clinical progression and re-assessment by fellow clinical providers in the ED. Further treatment and workup at subsequent clinical providers discretion. Patient/guardians urged not to elope from ED as their condition may be serious if not clinically assessed and managed. 2-labs The patient was evaluated in the emergency department for symptoms described in the history of present illness. He/she was evaluated in the context of the global COVID-19 pandemic, which necessitated consideration that the patient might be at risk for infection with the virus that causes COVID-19. Institutional protocols and algorithms that pertain to the evaluation of patients at risk for COVID-19 are in a state of rapid change based on information released by regulatory bodies including the CDC and federal and state organizations. These policies and algorithms were followed during the patient's care in the emergency department. Please note that these policies, procedures and recommendations changed on a rapid basis.
[2021-11-07 13:16] LABS: Amphetamine Screen,Urine Negative; Benzodiazepines Screen,Urine Negative; Methadone Screen,Urine Negative; Opiate Screen,Urine Negative
[2021-11-07 13:22] LABS: Cannabinoid Screen,Urine Positive; Cocaine Screen,Urine Positive
[2021-11-07 13:23] LABS: Alanine Aminotransferase 20 units/L (7-56); Albumin 4.2 g/dL (3.9-5); BUN/Creatinine Ratio 26; Basophils % (Auto) 0.8 % (0.0-1.8); Blood Urea Nitrogen 23 mg/dL (9-20); Calcium 9.6 mg/dL (8.4-10.2); Eosinophils # (Auto) 0.2 K/mm3 (0.0-0.4); Eosinophils % (Auto) 5.4 % (0.0-4.3); Hemoglobin 11.5 gm/dl (11.8-15.2); Hemolysis Index 2; Lymphocytes # (Auto) 1.3 K/mm3 (1.2-5.4); Lymphocytes % (Auto) 31.9 % (13.4-35.0); Mean Corpuscular HGB Conc 33 % (32-34); Mean Corpuscular Volume 95 fl (84-94); Monocytes # (Auto) 0.3 K/mm3 (0.0-0.8); Platelet Count 259 K/mm3 (140-440); Red Cell Distribution Width 15.1 % (13.2-15.2)
[2021-11-07 13:24] LABS: Color,Urine Yellow (Yellow); Mucus,Urine FEW /HPF
--- NOTE | 2021-11-09 13:53 | Electrocardiograph Report ---
[facility] Test Date: 2021-11-07 Test Time: 11:34:16 Pat Name: CITLALLI SAHA Department: Room: Gender: M Assistant Scientist: RADHA : 1980 Requested By: ED DOC Order Number: [id number] Reading MD: Will Munoz Measurements Intervals [place] Rate: 81 P: 67 HI: 142 QRS: 24 QRSD: 99 T: 53 QT: 413 QTc: 481 Interpretive Statements Sinus rhythm Consider left ventricular hypertrophy Nonspecific ST segment abnormality No previous ECG available for comparison Electronically Signed On 11-09-2021 13:53:11 EDT by Will Munoz
== END 2021-11-07 15:18 | disposition left against medical advice (07) ==
LOC: ED 11:24
DX: R44.1 Visual hallucinations (principal); Z53.21 Procedure and treatment not carried out due to patient leaving prior to being seen by health care provider; Z79.899 Other long term (current) drug therapy
CPT/HCPCS: 36415; 80053; 80307; 80320; 81001; 85025; 93005; G0480

== ENCOUNTER 2021-11-08 17:41 | Emergency (ER) | payer MEDICARE ==
[2021-11-08 20:27] LABS: Basophils % (Auto) 0.9 % (0.0-1.8); Eosinophils # (Auto) 0.2 K/mm3 (0.0-0.4); Eosinophils % (Auto) 5.9 % (0.0-4.3); Hemoglobin 11.4 gm/dl (11.8-15.2); Lymphocytes # (Auto) 1.6 K/mm3 (1.2-5.4); Lymphocytes % (Auto) 38.4 % (13.4-35.0); Mean Corpuscular HGB Conc 33 % (32-34); Mean Corpuscular Volume 94 fl (84-94); Monocytes # (Auto) 0.3 K/mm3 (0.0-0.8); Monocytes % (Auto) 7.4 % (0.0-7.3); Platelet Count 254 K/mm3 (140-440); Red Blood Count 3.74 M/mm3 (3.65-5.03); Red Cell Distribution Width 14.8 % (13.2-15.2)
[2021-11-08 20:43] LABS: BUN/Creatinine Ratio 26; Blood Urea Nitrogen 21 mg/dL (9-20); Calcium 9.3 mg/dL (8.4-10.2); Hemolysis Index 2
[2021-11-09 00:37] VITALS: BP 179/76
[2021-11-09 01:09] LABS: Color,Urine Colorless (Yellow)
[2021-11-09 01:22] LABS: Mucus,Urine FEW /HPF
[2021-11-09 01:24] LABS: Amphetamine Screen,Urine PRESUMPTIVE NEGATIVE; Benzodiazepines Screen,Urine PRESUMPTIVE NEGATIVE; Cannabinoid Screen,Urine PRESUMPTIVE POSITIVE; Cocaine Screen,Urine PRESUMPTIVE POSITIVE; Methadone Screen,Urine PRESUMPTIVE NEGATIVE; Opiate Screen,Urine PRESUMPTIVE NEGATIVE
--- NOTE | 2021-11-09 11:25 | Emergency Department Report ---
ED Psych HPI - General Chief Complaint: Psych Stated Complaint: MEDICAL TREATMENT Time Seen by Provider: 11/09/21 11:24 Source: patient Mode of arrival: Ambulatory - History of Present Illness Initial Comments: 41 yo comes to ER with polysub abuse requesting detox. no hi no si pos a/v hallucination pos paranoia cooperative - Related Data Home Medications Medication Instructions Recorded Confirmed Last Taken Vistaril 50 mg PO BID 10/07/21 10/07/21 Unknown Vraylar 3 mg PO BID 10/07/21 10/07/21 Unknown amLODIPine 20 mg PO BID 10/07/21 10/07/21 Unknown Previous Rx's Medication Instructions Recorded Last Taken Type cloNIDine [Catapres] 0.2 mg PO BID #60 01/23/19 Unknown Rx Doxycycline Hyclate [Doxycycline 100 mg PO Q12HR 7 Days #14 tab 10/07/21 Unknown Rx Hyclate TAB] Allergies Allergy/AdvReac Type Severity Reaction Status Date / Time No Known Allergies Allergy Unverified 11/02/21 20:48 ED Review of Systems ROS: Stated complaint: MEDICAL TREATMENT Other details as noted in HPI Comment: All other systems reviewed and negative ED Past Medical Hx - Past Medical History Previous Medical History?: Yes Hx Hypertension: Yes Hx GERD: Yes Hx Seizures: Yes Hx Psychiatric Treatment: Yes (Mood disorder, Bipolar, Depression, schizophrenia) Additional medical history: boderline diabetic - Surgical History Past Surgical History?: Yes Hx Appendectomy: Yes Additional Surgical History: Right wrist, Left foot - Social History Smoking Status: Current Every Day Smoker Substance Use Type: Cocaine, Marijuana, Methamphetamines - Medications Home Medications: Home Medications Medication Instructions Recorded Confirmed Last Taken Type cloNIDine [Catapres] 0.2 mg PO BID #60 01/23/19 10/07/21 Unknown Rx Doxycycline Hyclate [Doxycycline 100 mg PO Q12HR 7 Days #14 tab 10/07/21 Unknown Rx Hyclate TAB] Vistaril 50 mg PO BID 10/07/21 10/07/21 Unknown History Vraylar 3 mg PO BID 10/07/21 10/07/21 Unknown History amLODIPine 20 mg PO BID 10/07/21 10/07/21 Unknown History ED Physical Exam - General Limitations: No Limitations General appearance: alert - Head Head exam: Present: atraumatic, normocephalic - Eye Eye exam: Present: normal appearance - ENT ENT exam: Present: mucous membranes moist - Neck Neck exam: Present: normal inspection - Respiratory Respiratory exam: Present: normal lung sounds bilaterally. Absent: respiratory distress - Cardiovascular Cardiovascular Exam: Present: regular rate, normal rhythm. Absent: systolic murmur, diastolic murmur, rubs, gallop - GI/Abdominal GI/Abdominal exam: Present: soft, normal bowel sounds - Rectal Rectal exam: Present: deferred - Extremities Exam Extremities exam: Present: normal inspection - Back Exam Back exam: Present: normal inspection - Neurological Exam Neurological exam: Present: alert, oriented X3 - Psychiatric Psychiatric exam: Present: anxious - Skin Skin exam: Present: warm, dry, intact, normal color. Absent: rash ED Course Vital Signs 11/08/21 11/09/21 19:53 00:35 Temperature 98.3 F 98.5 F Pulse Rate 83 85 Respiratory 20 18 Rate Blood Pressure 181/108 Blood Pressure 179/76 [Right] O2 Sat by Pulse 98 97 Oximetry ED Medical Decision Making - Lab Data Result diagrams: 11/08/21 20:14 11/08/21 19:37 Critical care attestation.: If time is entered above; I have spent that time in minutes in the direct care of this critically ill patient, excluding procedure time. ED Disposition Clinical Impression: Polysubstance abuse Disposition: 30 STILL A PATIENT Is pt being admited?: No Does the pt Need Aspirin: No Condition: Stable
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
== END 2021-11-10 13:47 | disposition home or self-care (01) ==
LOC: ED 17:41
DX: F19.10 Other psychoactive substance abuse, uncomplicated (principal); Z20.822 Contact with and (suspected) exposure to COVID-19; I10 Essential (primary) hypertension; K21.9 Gastro-esophageal reflux disease without esophagitis; F31.9 Bipolar disorder, unspecified; F20.9 Schizophrenia, unspecified; F17.200 Nicotine dependence, unspecified, uncomplicated; F12.90 Cannabis use, unspecified, uncomplicated; F14.90 Cocaine use, unspecified, uncomplicated; F15.90 Other stimulant use, unspecified, uncomplicated; Z90.49 Acquired absence of other specified parts of digestive tract; Z98.890 Other specified postprocedural states; Z79.899 Other long term (current) drug therapy
CPT/HCPCS: 36415; 80048; 80307; 81001; 85025; 99284; U0003; 80320; 99283; G0480

== ENCOUNTER 2021-11-19 18:26 | Emergency (ER) | payer MEDICARE | END 2021-11-20 07:33 | disposition left against medical advice (07) | LOC: ED 18:26 | DX: Z71.89 Other specified counseling (principal); Z53.21 Procedure and treatment not carried out due to patient leaving prior to being seen by health care provider ==

== ENCOUNTER 2021-11-20 11:34 | Emergency (ER) | payer MEDICARE | END 2021-11-20 13:00 | disposition left against medical advice (07) | LOC: ED 11:34 | DX: Z00.00 Encounter for general adult medical examination without abnormal findings (principal); Z53.21 Procedure and treatment not carried out due to patient leaving prior to being seen by health care provider ==